=== PATIENT | female | born 1945 | race Caucasian/White ===

== ENCOUNTER 2017-11-19 22:31 | Emergency (ER) | payer MEDICARE, OTHER ==
[2017-11-20 00:01] LABS: Absolute Lymphocytes (CBC) 0.4 K/uL (0.7-4.9); Absolute Monocytes 0.5 K/uL (0.1-1.3); Absolute Neutrophil 11.3 K/uL (1.8-8.0); Basophils % 0.4 % (0-1.3); Eosinophils % 0.3 % (0-4.4); Hematocrit 40.3 % (36.0-45.0); Lymphocytes % 3.6 % (15.3-44.8); MCH 24.7 pg (27.0-35.0); MCV 80.5 fL (80-100); MPV 10.7 fL (7.6-11.3); Monocytes % 4.2 % (3.3-12.3); RBC Red Blood Cell Count 5.01 M/uL (3.86-4.86)
--- NOTE | 2017-11-20 00:04 | ER ---
Nurse's Notes [facility] Name: Shelli Caputo Age: 72 yrs Sex: Female : 1945 Arrival Date: 11/19/2017 Time: 22:32 Bed 3 Private MD: Diagnosis: Altered mental status, unspecified Presentation: 11/19 22:25 Presenting complaint: EMS states: Patient has not been feeling well all weak per lp1 family, states after dinner tonight patient got home, became pale and began shaking, vomited on self; family states hx of prior CVA with similar symptoms. Transition of care: patient was not received from another setting of care. Onset of symptoms was November 19, 2017 at 21:30. Initial Sepsis Screen: Does the patient meet any 2 criteria? No. Patient's initial sepsis screen is negative. Does the patient have a suspected source of infection? No. Patient's initial sepsis screen is negative. Care prior to arrival: Glucose check: 174 Oxygen administered. via a non-rebreather mask. 22:25 Method Of Arrival: EMS: [facility] lp1 22:25 Acuity: JESSICA 2 lp1 Historical: - Allergies: 23:18 phenylpropanolamine HCl; lp1 23:18 guaifenesin; lp1 23:18 cefazolin sodium; lp1 23:18 Duravent DM; lp1 23:18 NSAIDS; lp1 - Home Meds: 23:18 insulin aspart subcutaneous 15 units subcutaneous three times a day [Active]; albuterol lp1 sulfate 90 mcg/actuation inhalation HFAA every 6 hours [Active]; aspirin 81 mg Oral TbEC 1 tab once daily [Active]; atorvastatin 40 mg oral tab 0.5 tab nightly [Active]; budesonide-formoterol inhalation 160/4.5 mcg inhalation 1 puffs 2 times per day [Active]; carboxymethylcellulose sodium ophthalmic 1 drop ophthalmic four times a day [Active]; cetirizine 10 mg oral tab 0.5 tab once daily [Active]; Plavix 75 mg Oral tab 1 tab once daily [Active]; cyanocobalamin (vitamin B-12) 1,000 mcg oral tab daily [Active]; donepezil 10 mg oral tab 0.5 tab nightly [Active]; fluticasone 50 mcg/actuation nasal spsn 1 spray 2 times per day [Active]; gabapentin 300 mg oral cap 2 caps twice a day [Active]; insulin detemir subcutaneous 20 units subcutaneous daily [Active]; ketorolac 0.5 % ophthalmic drop 1 drop 4 times per day [Active]; lisinopril 20 mg Oral tab 1 tab once daily [Active]; magnesium oxide 420 mg Oral tab three times a day [Active]; metoprolol succinate 50 mg oral Tb24 1 tab once daily [Active]; multivitamin oral tab daily [Active]; pantoprazole 40 mg oral TbEC 1 tab 2 times per day [Active]; paroxetine HCl 30 mg oral tab 1 tab once daily [Active]; saxagliptin oral 5 mg oral once daily [Active]; thiamine HCl (vitamin B1) 100 mg Oral tab daily [Active]; tiotropium bromide inhalation 18 mcg inhalation once daily [Active]; - PMHx: 23:18 COPD; CHF; Diabetes- IDDM; CVA; lp1 - PSHx: 23:18 Brain surgery; lp1 - Immunization history:: Adult Immunizations up to date. - Social history:: Smoking status: Patient/guardian denies using tobacco, the patient reports quitting approximately 55 years ago. Screenin:03 Abuse screen: Denies threats or abuse. Nutritional screening: No deficits noted. tl2 Tuberculosis screening: No symptoms or risk factors identified. The patient has not been NPO before screening. The patient is alert, able to follow commands. The patient does not exhibit slurred or garbled speech The patient is not exhibiting difficulty speaking. The patient does not exhibit difficulty understanding words. The patient is able to swallow own secretions with no drooling or need for suction. Patient tolerated one teaspoon of water. No drooling, immediate coughing, gurgling, or clearing of the throat was noted. The patient tolerated 90mL of water. No drooling, immediate coughing, gurgling, or clearing of the throat was noted. The patient passed the bedside swallow screening. Oral medications may be given as ordered. Contact Physician for further diet orders. Fall Risk Secondary diagnosis (15 points) IV access (20 points). Gait- Weak (10 pts.). Assessment: 22:30 General: Appears well groomed, Behavior is flat. Pain: Unable to use pain scale. lp1 Patient is disoriented. FLACC scale score is 0 out of 10. Neuro: Level of Consciousness is stuporous, Oriented to person, Top Closer are weak bilaterally Moves all extremities. Speech slow to respond, delayed. Facial symmetry appears normal, Pupils are PERRLA. Cardiovascular: Capillary refill < 3 seconds in bilateral fingers toes Patient's skin is warm and dry. Rhythm is sinus tachycardia. Respiratory: Airway is patent Trachea midline Respiratory effort is even, Respiratory pattern is regular, symmetrical, Breath sounds are clear bilaterally. GI: Abdomen is non-distended. : No signs and/or symptoms were reported regarding the genitourinary system. EENT: No signs and/or symptoms were reported regarding the EENT system. Derm: Skin is pink, warm \T\ dry. Musculoskeletal: Circulation, motion, and sensation intact. 23:21 Reassessment: Family at bedside, patient becoming more responsive, recalling events lp1 prior to EMS arriving with family. 23:34 Reassessment: Labs at bedside for recollect. lp1 11/20 00:00 Reassessment: [facility] Power of Junior Linux Administrator [phone]. tl2 00:30 Reassessment: Patient resting, eyes closed, respirations unlabored; Family aware of lp1 pending transfer. 01:30 Reassessment: Patient appears in no apparent distress at this time. No changes from lp1 previously documented assessment. Patient and/or family updated on plan of care and expected duration. Pain level reassessed. 02:00 Reassessment: Report given to Gerardo Cortez RN at [facility]. lp1 02:30 Reassessment: EMS at bedside for transfer to [facility]. lp1 02:30 General: Appears in no apparent distress. Neuro: Level of Consciousness is awake, obeys lp1 commands, Oriented to person, place. Respiratory: Respiratory effort is even, unlabored. Derm: Skin is pink, warm \T\ dry. Vital Signs: 11/19 22:30 BP 191 / 97; Pulse 107; Resp 18; Temp 99.0(O); Pulse Ox 99% on 50% BiPAP; Weight 99.79 lp1 kg; 22:45 BP 156 / 92; Pulse 101; Resp 19; Pulse Ox 99% on Venturi mask; lp1 23:00 BP 154 / 87; Pulse 109; Resp 18; Pulse Ox 98% on Venturi mask; lp1 23:15 BP 149 / 88; Pulse 107; Resp 19; Pulse Ox 94% on R/A; lp1 11/20 00:00 BP 124 / 67; Pulse 92; Resp 18; Pulse Ox 95% on 1 lpm NC; lp1 00:24 BP 126 / 53; Pulse 80; Resp 18; Pulse Ox 95% on 1 lpm NC; mw2 01:00 BP 120 / 57; Pulse 81; Resp 19; Pulse Ox 95% on 1 lpm NC; lp1 01:20 BP 113 / 55; Pulse 75; Resp 18; Pulse Ox 95% on 1 lpm NC; lp1 02:00 BP 121 / 61; Pulse 77; Resp 19; Pulse Ox 96% on 1 lpm NC; lp1 02:30 BP 111 / 58; Pulse 84; Resp 17; Pulse Ox 96% on 1 lpm NC; Pain 0/10; lp1 John Coma Score: 11/19 22:49 Eye Response: spontaneous(4). Verbal Response: none(1). Motor Response: obeys ma2 commands(6). Total: 11. NIH Stroke Scale Scores: 22:49 NIHSS Score: 18 ma2 23:03 NIHSS Score: 4 tl2 ED Course: 22:25 Patient has correct armband on for positive identification. Placed in gown. Bed in low lp1 position. Call light in reach. monitoring tech on. Pulse ox on. NIBP on. 22:32 Patient arrived in ED. ds1 22:34 Akhil Ibarra MD is Attending Physician. ma2 22:34 Inserted saline lock: 22 gauge in right forearm, using aseptic technique. Blood lp1 collected. By jayesh Alexandra. 22:50 CT completed. Patient moved to CT via stretcher. Patient moved back from CT. cw1 22:50 EKG done, by ED staff, reviewed by Akhil Ibarra MD. lp1 22:53 CT Stroke Brain w/o Contrast In Process Unspecified. EDMS 22:54 Triage completed. lp1 22:55 Arm band placed on left wrist. lp1 22:58 X-ray(s) taken. lp1 23:08 X-ray completed. Portable x-ray completed in exam room. Patient tolerated procedure mh1 well. 23:10 Stroke CXR 1 View In Process Unspecified. EDMS 23:38 Shaylee Harley, RN is Primary Nurse. lp1 11/20 00:00 Inserted saline lock: 18 gauge in left antecubital area, using aseptic technique. By lp1 Dr. Ibarra. 00:15 Straight cath inserted, using sterile technique, 16 Fr. Specimen obtained. lp1 03:00 No provider procedures requiring assistance completed. Patient transferred, IV remains lp1 in place. Administered Medications: 02:40 Drug: Rocephin 1 grams Route: IV; Rate: 1 bolus; Site: left antecubital; lp1 03:06 Follow up: Response: No adverse reaction; IV Status: Completed infusion lp1 02:40 Drug: D5-1/2 NS 1000 ml Route: IV; Rate: 125 ml/hr; Site: right forearm; lp1 03:07 Follow up: IV Status: Infusion continued upon transfer lp1 03:05 CANCELLED (Physician Discretion): D5-1/2 NS 500 ml IV at bolus once; 1000 mL bolus; lp1 followed by 125 mL/hr continuous Point of Care Testing: Blood Glucose: 11/19 22:33 Blood Glucose: 226 mg/dL; lp1 11/20 02:57 Blood Glucose: 186 mg/dL; lp1 Ranges: Outcome: 00:04 ER care complete, transfer ordered by . ma2 02:00 Instructed on the need for transfer, Family aware lp1 03:04 Transferred by ground EMS to [facility] Transfer form completed. lp1 X-rays sent w/ patient. 03:04 Condition: stable 03:08 Patient left the ED. lp1 NIH Stroke Scale - NIH Stroke Score Date: 11/19/2017 Time: 22:49 Total Score = 18 1a. Level of Consciousness (LOC) - 0(Alert) 1b. Level of Consciousness (LOC) (Year \T\ Age) - 2(Neither) 1c. LOC Commands (Open \T\ Closes Eyes/Plastic Eye Technician) - 0(Both) 2. Best Gaze (Lateral Gaze Paresis) - 0(Normal) 3. Visual Field Loss - 0(No visual loss) 4. Facial Palsy - 0(Normal) 5a. Left Arm: Motor (10-second hold) - 3(No effort against gravity) 5b. Right Arm: Motor (10-second hold) - 3(No effort against gravity) 6a. Left Leg: Motor (5-second hold - always test supine) - 3(No effort against gravity) 6b. Right Leg: Motor (5-second hold - always test supine) - 3(No effort against gravity) 7. Limb Ataxia (finger/nose \T\ heel/cormier - test with eyes open) - 0(Absent) 8. Sensory Loss (pinprick arms/legs/face) - 0(Normal) 9. Best Language: Aphasia (description/naming/reading) - 2(Severe aphasia) 10. Dysarthria (speech clarity - read or repeat words) - 0(Normal) 11. Extinction and Inattention (visual/tactile/auditory/spatial/personal) - 2(Profound) Initials: ma2 NIH Stroke Scale - NIH Stroke Score Date: 11/19/2017 Time: 23:03 Total Score = 4 1a. Level of Consciousness (LOC) - 0(Alert) 1b. Level of Consciousness (LOC) (Year \T\ Age) - 0(Both) 1c. LOC Commands (Open \T\ Closes Eyes/Plastic Eye Technician) - 0(Both) 2. Best Gaze (Lateral Gaze Paresis) - 0(Normal) 3. Visual Field Loss - 0(No visual loss) 4. Facial Palsy - 0(Normal) 5a. Left Arm: Motor (10-second hold) - 0(No drift) 5b. Right Arm: Motor (10-second hold) - 0(No drift) 6a. Left Leg: Motor (5-second hold - always test supine) - 2(Drift, some effort against gravity) 6b. Right Leg: Motor (5-second hold - always test supine) - 2(Drift, some effort against gravity) 7. Limb Ataxia (finger/nose \T\ heel/cormier - test with eyes open) - 0(Absent) 8. Sensory Loss (pinprick arms/legs/face) - 0(Normal) 9. Best Language: Aphasia (description/naming/reading) - 0(No aphasia) 10. Dysarthria (speech clarity - read or repeat words) - 0(Normal) 11. Extinction and Inattention (visual/tactile/auditory/spatial/personal) - 0(No abnormality) Initials: tl2 Addendum: 11/24/2017 11:00 Addendum: Culture Results: Positive urine culture. no longer a pt at [facility], iw attempted to call at home, no answer, unable to leave . Signatures: Dispatcher [employer] EDMS Navi, Gricelda mh1 Adrienne Romero ds1 Cinthya Matute RN RN iw Smita Block cw1 Shaylee Harley RN RN lp1 Paty Cohen RN RN tl2 Akhil Ibarra MD MD mn2 Mariela Fallon mw2 Corrections: (The following items were deleted from the chart) 11/19 23:21 22:30 BP 191 / 97; Pulse 107bpm; Resp 18bpm; Pulse Ox 99% 02 50% BiPAP; 99.79 lp1 kg; lp1
--- NOTE | 2017-11-20 00:05 | EDPHYS ---
Physician Documentation [facility] Name: Shelli Caputo Age: 72 yrs Sex: Female : 1945 Arrival Date: 11/19/2017 Time: 22:32 Bed 3 Private MD: ED Physician Akhil Ibarra HPI: 11/20 00:04 This 72 yrs old Female presents to ER via EMS with complaints of S/S of ma2 Possible Stroke. 11/19 22:40 The patient presents with confusion, decreased mental status. Onset: The ma2 symptoms/episode began/occurred suddenly, 1 hour(s) ago. Possible causes: CVA or TIA. Associated signs and symptoms: The patient has no apparent associated signs or symptoms, Pertinent positives:. 22:44 Associated signs and symptoms: Pertinent positives: confusion. Current symptoms: In the [facility] emergency department the patient's symptoms are unchanged from the initial presentation. Patient's baseline: Neuro:. has 1 episode of vomiting then started staring and not taking, she follow some motor commands but aphasic, with eye open, GCS = 11 with aphasia, gets 1 for best verbal response, BS wnl, she is alert with unlabored breathing, tachycrdic and hypertensive . 23:11 had prior brain bleed per son that was [facility] on [facility] will not do Tpa . [facility] Historical: - Allergies: 23:18 phenylpropanolamine HCl; lp1 23:18 guaifenesin; lp1 23:18 cefazolin sodium; lp1 23:18 Duravent DM; lp1 23:18 NSAIDS; lp1 - Home Meds: 23:18 insulin aspart subcutaneous 15 units subcutaneous three times a day [Active]; albuterol lp1 sulfate 90 mcg/actuation inhalation HFAA every 6 hours [Active]; aspirin 81 mg Oral TbEC 1 tab once daily [Active]; atorvastatin 40 mg oral tab 0.5 tab nightly [Active]; budesonide-formoterol inhalation 160/4.5 mcg inhalation 1 puffs 2 times per day [Active]; carboxymethylcellulose sodium ophthalmic 1 drop ophthalmic four times a day [Active]; cetirizine 10 mg oral tab 0.5 tab once daily [Active]; Plavix 75 mg Oral tab 1 tab once daily [Active]; cyanocobalamin (vitamin B-12) 1,000 mcg oral tab daily [Active]; donepezil 10 mg oral tab 0.5 tab nightly [Active]; fluticasone 50 mcg/actuation nasal spsn 1 spray 2 times per day [Active]; gabapentin 300 mg oral cap 2 caps twice a day [Active]; insulin detemir subcutaneous 20 units subcutaneous daily [Active]; ketorolac 0.5 % ophthalmic drop 1 drop 4 times per day [Active]; lisinopril 20 mg Oral tab 1 tab once daily [Active]; magnesium oxide 420 mg Oral tab three times a day [Active]; metoprolol succinate 50 mg oral Tb24 1 tab once daily [Active]; multivitamin oral tab daily [Active]; pantoprazole 40 mg oral TbEC 1 tab 2 times per day [Active]; paroxetine HCl 30 mg oral tab 1 tab once daily [Active]; saxagliptin oral 5 mg oral once daily [Active]; thiamine HCl (vitamin B1) 100 mg Oral tab daily [Active]; tiotropium bromide inhalation 18 mcg inhalation once daily [Active]; - PMHx: 23:18 COPD; CHF; Diabetes- IDDM; CVA; lp1 - PSHx: 23:18 Brain surgery; lp1 - Immunization history:: Adult Immunizations up to date. - Social history:: Smoking status: Patient/guardian denies using tobacco, the patient reports quitting approximately 55 years ago. ROS: 22:49 Unable to obtain ROS due to altered mental status. ma2 11/20 00:04 Back: Negative for injury and pain. ma2 Exam: 11/19 22:49 Chest/axilla: Normal chest wall appearance and motion. Nontender with no deformity. ma2 No lesions are appreciated. Cardiovascular: Regular rate and rhythm with a normal S1 and S2. No gallops, murmurs, or rubs. Normal PMI, no JVD. No pulse deficits. Respiratory: Lungs have equal breath sounds bilaterally, clear to auscultation and percussion. No rales, rhonchi or wheezes noted. No increased work of breathing, no retractions or nasal flaring. Constitutional: The patient appears alert, awake, agitated, anxious, non verball Eyes: Pupils: equal, round, and reactive to light and accomodation, Extraocular movements: Neuro: Orientation: unable to test, Mentation: Cranial nerves: grossly normal, Cerebellar function: unable to test, Motor: unable to test, uncooperative, Sensation: unable to test, Gait: not applicable patient now answer question and state her name, still does not answer any other questions . Vital Signs: 22:30 BP 191 / 97; Pulse 107; Resp 18; Temp 99.0(O); Pulse Ox 99% on 50% BiPAP; Weight 99.79 lp1 kg; 22:45 BP 156 / 92; Pulse 101; Resp 19; Pulse Ox 99% on Venturi mask; lp1 23:00 BP 154 / 87; Pulse 109; Resp 18; Pulse Ox 98% on Venturi mask; lp1 23:15 BP 149 / 88; Pulse 107; Resp 19; Pulse Ox 94% on R/A; lp1 11/20 00:00 BP 124 / 67; Pulse 92; Resp 18; Pulse Ox 95% on 1 lpm NC; lp1 00:24 BP 126 / 53; Pulse 80; Resp 18; Pulse Ox 95% on 1 lpm NC; mw2 01:00 BP 120 / 57; Pulse 81; Resp 19; Pulse Ox 95% on 1 lpm NC; lp1 01:20 BP 113 / 55; Pulse 75; Resp 18; Pulse Ox 95% on 1 lpm NC; lp1 02:00 BP 121 / 61; Pulse 77; Resp 19; Pulse Ox 96% on 1 lpm NC; lp1 02:30 BP 111 / 58; Pulse 84; Resp 17; Pulse Ox 96% on 1 lpm NC; Pain 0/10; lp1 NIH Stroke Scale Scores: 11/19 22:49 NIHSS Score: 18 ma2 23:03 NIHSS Score: 4 tl2 John Coma Score: 22:49 Eye Response: spontaneous(4). Verbal Response: none(1). Motor Response: obeys ma2 commands(6). Total: 11. MDM: 22:39 Patient medically screened. ma2 22:49 Differential Diagnosis: CVA, electrolyte abnormality, alcohol intoxication, ma2 hypoglycemia, overdose, TIA, volume depletion. 11/20 00:01 Data reviewed: vital signs, nurses notes, lab test result(s), EKG, radiologic studies. ma2 Counseling: I had a detailed discussion with the patient and/or guardian regarding: the historical points, exam findings, and any diagnostic results supporting the discharge/admit diagnosis, the need to transfer to another facility. ED course: CT unremarkable patient mentation now is better still dysarthric, she is not cooperative or neuroexam she may have had a stroke or TIA, imprving need to be admitted, however no neurology service available in this hospital will transfer emergently for higher level of care. 11/19 22:39 Order name: Amylase, Serum; Complete Time: : ma11/19 22:39 Order name: Basic Metabolic Panel; Complete Time: 11/19 22:39 Order name: BNP; Complete Time: 11/19 22:39 Order name: CBC with Diff; Complete Time: :11/19 22:39 Order name: Ckmb; Complete Time: 11/19 22:39 Order name: CPK; Complete Time: 11/19 22:39 Order name: Hepatic Function; Complete Time: :11/19 22:39 Order name: Lipase; Complete Time: 11/19 22:39 Order name: Magnesium; Complete Time: 11/19 22:39 Order name: Protime (+inr); Complete Time: :11/19 22:39 Order name: Ptt, Activated; Complete Time: 11/19 22:39 Order name: Troponin (emerg Dept Use Only); Complete Time: :11/19 22:39 Order name: Urine Microscopic Only; Complete Time: :11/19 22:57 Order name: UDS 11/19 22:39 Order name: EKG; Complete Time: 22:40 11/19 22:39 Order name: Cardiac monitoring; Complete Time: 22:49 wy11/19 22:39 Order name: EKG - Nurse/Tech; Complete Time: 22:50 11/19 22:39 Order name: IV Saline Lock; Complete Time: 22:49 11/19 22:39 Order name: Labs collected and sent; Complete Time: 22:50 wy11/19 22:39 Order name: NPO; Complete Time: 22:50 11/19 22:39 Order name: O2 Per Protocol; Complete Time: 22:50 ma2 11/19 22:39 Order name: CT Stroke Brain w/o Contrast [facility] 11/19 22:39 Order name: Stroke CXR 1 View [facility] 11/19 22:57 Order name: Alcohol Level; Complete Time: 01:57 [facility] 11/20 00:05 Order name: Manual Differential; Complete Time: 01:57 [facility] 11/20 00:21 Order name: Urine Dipstick--Ancillary (enter results); Complete Time: 01:57 [facility] 11/20 01:43 Order name: Urine Culture [facility] 11/19 22:39 Order name: O2 Sat Monitoring; Complete Time: 22:50 [facility] 11/19 22:39 Order name: Urine Dipstick-Ancillary (obtain specimen); Complete Time: 00:23 [facility] 11/19 22:39 Order name: Accucheck; Complete Time: 22:49 [facility] 11/19 22:39 Order name: Stroke Swallow Screen; Complete Time: 23:11 ma2 Administered Medications: 02:40 Drug: Rocephin 1 grams Route: IV; Rate: 1 bolus; Site: left antecubital; lp1 03:06 Follow up: Response: No adverse reaction; IV Status: Completed infusion lp1 02:40 Drug: D5-1/2 NS 1000 ml Route: IV; Rate: 125 ml/hr; Site: right forearm; lp1 03:07 Follow up: IV Status: Infusion continued upon transfer lp1 03:05 CANCELLED (Physician Discretion): D5-1/2 NS 500 ml IV at bolus once; 1000 mL bolus; lp1 followed by 125 mL/hr continuous Point of Care Testing: Blood Glucose: 11/19 22:33 Blood Glucose: 226 mg/dL; lp1 11/20 02:57 Blood Glucose: 186 mg/dL; lp1 Ranges: Critical Glucose Levels:Adult <50 mg/dl or >400 mg/dl <40 mg/dl or >180 mg/dl Disposition: 11/20/17 00:04 Transfer ordered to [facility]. Diagnosis is Altered mental status, unspecified. - Reason for transfer: Higher level of care. - Accepting physician is Dr. Gongora. - Condition is Stable. - Problem is new. - Symptoms have improved. NIH Stroke Scale - NIH Stroke Score Date: 11/19/2017 Time: 22:49 Total Score = 18 1a. Level of Consciousness (LOC) - 0(Alert) 1b. Level of Consciousness (LOC) (Year \T\ Age) - 2(Neither) 1c. LOC Commands (Open \T\ Closes Eyes/Incident Analyst) - 0(Both) 2. Best Gaze (Lateral Gaze Paresis) - 0(Normal) 3. Visual Field Loss - 0(No visual loss) 4. Facial Palsy - 0(Normal) 5a. Left Arm: Motor (10-second hold) - 3(No effort against gravity) 5b. Right Arm: Motor (10-second hold) - 3(No effort against gravity) 6a. Left Leg: Motor (5-second hold - always test supine) - 3(No effort against gravity) 6b. Right Leg: Motor (5-second hold - always test supine) - 3(No effort against gravity) 7. Limb Ataxia (finger/nose \T\ heel/cormier - test with eyes open) - 0(Absent) 8. Sensory Loss (pinprick arms/legs/face) - 0(Normal) 9. Best Language: Aphasia (description/naming/reading) - 2(Severe aphasia) 10. Dysarthria (speech clarity - read or repeat words) - 0(Normal) 11. Extinction and Inattention (visual/tactile/auditory/spatial/personal) - 2(Profound) Initials: ma2 NIH Stroke Scale - NIH Stroke Score Date: 11/19/2017 Time: 23:03 Total Score = 4 1a. Level of Consciousness (LOC) - 0(Alert) 1b. Level of Consciousness (LOC) (Year \T\ Age) - 0(Both) 1c. LOC Commands (Open \T\ Closes Eyes/Incident Analyst) - 0(Both) 2. Best Gaze (Lateral Gaze Paresis) - 0(Normal) 3. Visual Field Loss - 0(No visual loss) 4. Facial Palsy - 0(Normal) 5a. Left Arm: Motor (10-second hold) - 0(No drift) 5b. Right Arm: Motor (10-second hold) - 0(No drift) 6a. Left Leg: Motor (5-second hold - always test supine) - 2(Drift, some effort against gravity) 6b. Right Leg: Motor (5-second hold - always test supine) - 2(Drift, some effort against gravity) 7. Limb Ataxia (finger/nose \T\ heel/cormier - test with eyes open) - 0(Absent) 8. Sensory Loss (pinprick arms/legs/face) - 0(Normal) 9. Best Language: Aphasia (description/naming/reading) - 0(No aphasia) 10. Dysarthria (speech clarity - read or repeat words) - 0(Normal) 11. Extinction and Inattention (visual/tactile/auditory/spatial/personal) - 0(No abnormality) Initials: tl2 Signatures: Dispatcher [employer] EDShaylee Patel RN RN [address] Stone StreetAkhil giordano MD MD ma2 Corrections: (The following items were deleted from the chart) 02:01 00:04 11/20/2017 00:04 Transfer ordered to Other Acute Care Facility. Diagnosis ma2 is Altered mental status, unspecified. Reason for transfer: Higher level of care. Accepting physician is luz. Condition is Stable. Problem is new. Symptoms have improved. ma2 03:05 02:04 D5-1/2 NS 500 ml IV at bolus once; 1000 mL bolus; followed by 125 mL/hr lp1 continuous ordered. ma2 03:08 02:01 11/20/2017 00:04 Transfer ordered to 's [address] Diagnosis is Altered mental status, unspecified. Reason for transfer: Higher level of care. Accepting physician is Dr. Gongora. Condition is Stable. Problem is new. Symptoms have improved. ma2
[2017-11-20 00:08] LABS: Protime INR 1.32
[2017-11-20 00:22] LABS: Potassium 4.6 mEq/L (3.6-5.0)
[2017-11-20 00:29] LABS: Albumin 3.5 g/dL (3.2-5.5); Bilirubin Direct 0.2 mg/dL (0-0.2); Bilirubin Total 0.7 mg/dL (0.3-1.2); Magnesium 1.5 mg/dL (1.8-2.5); Protein, Total 6.6 g/dL (6.0-8.3)
[2017-11-20 00:32] LABS: CKMB Creatine Kinase MB 2.7 ng/ml (0.3-4.0)
[2017-11-20 01:08] LABS: Blood Morphology Comment NOT SEEN (NOT SEEN); Platelet Estimate ADEQ
[2017-11-20 01:30] LABS: Barbiturates NEGATIVE; Benzodiazepines NEGATIVE; Cocaine NEGATIVE; METHAMPHETAM NEGATIVE; Opiates NEGATIVE; Phencyclidine NEGATIVE; THC Cannibis NEGATIVE
[2017-11-20 01:41] LABS: Urine Culture Reflex Order REFLEXED
[2017-11-20 01:42] LABS: Urine Bacteria LOADED /HPF (<20)
[2017-11-20 01:43] LABS: Urine RBC NONE SEEN /HPF (NONE SEEN)
[2017-11-20 01:44] LABS: Urine Blood 1+ (NEG); Urine Glucose NEGATIVE (NEG); Urine Protein 3+ (NEG); Urine Specific Gravity >1.030 (1.005-1.030); Urine pH 5.5 (5.0-7.0)
[2017-11-20] MEDS ORDERED: D5 0.45 NS 1,000 ML IV ONE (02:18)
[2017-11-20] MEDS ORDERED: CEFTRIAXONE/SWI 1gm 1 GM/10 ML SYR ONE (02:19)
[2017-11-20 03:34] VITALS: O2SAT 96
[2017-11-20 03:36] VITALS: BP 111/58
--- NOTE | 2017-11-20 11:21 | RAD REPORT ---
EXAM DESCRIPTION: CT - Ct Stroke Brain Wo Cont - 11/20/2017 6:57 am CLINICAL HISTORY: Altered consciousness, CVA COMPARISON: 07/11/2017, 11/11/2014 TECHNIQUE: All CT scans are performed using dose optimization technique as appropriate and may inclu de automated exposure control or mA/KV adjustment according to patient size. FINDINGS: No intracranial hemorrhage, hydrocephalus or extra-axial fluid collection.Advanced general ized brain atrophy is present with advanced periventricular and deep white matter chronic microvascul ar ischemic changes.No areas of brain edema or evidence of midline shift. Trace fluid level is seen left maxillary antrum. The paranasal sinuses and mastoids are otherwise carmencita ar. The calvarium is intact. IMPRESSION: No acute intracranial abnormality. Mild fluid level in the left maxillary antrum may represent acute sinusitis.
--- NOTE | 2017-11-20 11:34 | RAD REPORT ---
EXAM DESCRIPTION: RAD - Chest Single View - 11/19/2017 11:09 pm CLINICAL HISTORY: Shortness of breath COMPARISON: 07/11/2017 FINDINGS: Portable technique limits examination quality. Bilateral pulmonary opacities are noted with a nodular appearance to many of the opacities in the lef t lung. This appears new since comparative study. The heart is mildly prominent size. No displaced fr actures.Recommend followup CT chest assessment further workup.
--- NOTE | 2017-11-20 15:23 | EKG ---
Test Date: 2017-11-19 Test Time: 22:50:45 Label Sewer: BEN MEASUREMENT RESULTS: Intervals: Rate: 104 AL: 200 QRSD: 114 QT: 382 QTc: 502 [place]: P: 46 AL: 200 QRS: -45 T: 43 INTERPRETIVE STATEMENTS: Sinus tachycardia with premature atrial complexes Right bundle branch block Left anterior fascicular block Bifascicular block Septal infarct, age undetermined Abnormal ECG Compared to ECG 07/11/2017 21:12:15 Atrial premature complex(es) now present Left anterior fascicular block now present Bifascicular block now present Sinus rhythm no longer present Myocardial infarct finding still present Electronically Signed On 11-20-17 15:23:21 CDT by Dani Agarwal
== END 2017-11-20 03:08 ==
LOC: ER 22:31
DX: R41.82 Altered mental status, unspecified (principal); E11.9 Type 2 diabetes mellitus without complications; I50.9 Heart failure, unspecified; J44.9 Chronic obstructive pulmonary disease, unspecified; Z79.01 Long term (current) use of anticoagulants; Z79.4 Long term (current) use of insulin; Z79.82 Long term (current) use of aspirin; Z86.73 Personal history of transient ischemic attack (TIA), and cerebral infarction without residual deficits; Z88.6 Allergy status to analgesic agent; Z88.8 Allergy status to other drugs, medicaments and biological substances
CPT/HCPCS: 36415; 51702; 70450; 71045; 80048; 80076; 80307 ×8; 80320; 82150; 82550; 82553; 82962; 83690; 83735; 83880; 84484; 85025; 85610; 85730; 87086; 87088; 93005; 96365; 99285; J0696; 81003; 81015; 87077; 87186; 96361

== ENCOUNTER 2018-05-01 20:10 | Inpatient (IN) | payer OTHER ==
--- NOTE | 2018-05-01 21:26 | RAD REPORT ---
EXAM DESCRIPTION: CT - Head C Spine Mpr Wo Con - 05/01/2018 8:57 pm CLINICAL HISTORY: Head and neck injury status post fall. Head and neck pain COMPARISON: May 2017 TECHNIQUE: Computed axial tomography of the head and cervical spine was obtained. Sagittal and coronal reconstruction was performed. All CT scans are performed using dose optimization technique as appropriate and may include automated exposure control or mA/KV adjustment according to patient size. FINDINGS: An intracranial bleed is not seen. The ventricles are normal in caliber. An extra-axial fl uid collection is not noted. Moderate low-density areas within periventricular, deep and subcortical white matter are unchanged probably ischemic changes secondary to small vessel disease. Fluid within the visualized sinuses and mastoids is not seen A cervical fracture is not visualized. No dislocation is noted. Sideplate and screws fuse C4 through C7 with kyphosis at this level. The sideplate is not flush with the anterior aspect of the adjacent v ertebral bodies. It is without significant change in appearance from the prior exam IMPRESSION: No acute intracranial abnormality is seen. A cervical fracture is not visualized. If the patient continues to have symptoms to suggest intracra nial /spinal cord pathology then MRI would be recommended
[2018-05-01 21:37] LABS: Albumin 3.2 g/dL (3.4-5.0); Bilirubin Direct 0.1 mg/dL (0-0.2); Bilirubin Total 0.4 mg/dL (0.2-1.0); Magnesium 1.5 mg/dL (1.8-2.4); Potassium 4.2 mmol/L (3.5-5.1); Protein, Total 6.8 g/dL (6.4-8.2); Troponin (Emerg Dept Use Only) 0.02 ng/mL (0.0-0.045)
--- NOTE | 2018-05-01 22:05 | RAD REPORT ---
EXAM DESCRIPTION: [place] Single View05/01/2018 9:54 pm CLINICAL HISTORY: Chest pain COMPARISON: November 2017 FINDINGS: The lungs appear clear of acute infiltrate. The heart is borderline enlarged Old right rib fractures are seen IMPRESSION: No acute abnormalities displayed
--- NOTE | 2018-05-01 22:05 | RAD REPORT ---
EXAM DESCRIPTION: RAD - Pelvis - 05/01/2018 9:55 pm CLINICAL HISTORY: Pelvic pain status post injury FINDINGS: Compression screws and intramedullary rods affix old femoral fractures. The bones are osteoporotic. No acute fracture or dislocation is seen
--- NOTE | 2018-05-01 22:07 | RAD REPORT ---
EXAM DESCRIPTION: RAD - Hip Right 2 View - 05/01/2018 9:55 pm CLINICAL HISTORY: Right hip pain FINDINGS: Compression screws and intramedullary rods affix old femoral fractures. The bones are osteoporotic. No acute fracture or dislocation is se
--- NOTE | 2018-05-01 22:08 | RAD REPORT ---
EXAM DESCRIPTION: RAD - Hip Left 2 View - 05/01/2018 9:55 pm CLINICAL HISTORY: Left hip pain status post injury FINDINGS: Compression screws and intramedullary rods affix old femoral fractures. The bones are osteoporotic. No acute fracture or dislocation is se .
--- NOTE | 2018-05-01 22:12 | RAD REPORT ---
EXAM DESCRIPTION: Ribs Right - 05/01/2018 9:57 pm CLINICAL HISTORY: Right rib pain FINDINGS: Minimally displaced fractures involve right eighth, ninth and tenth lateral ribs
[2018-05-01 22:26] LABS: Protime INR 1.41
[2018-05-01] MEDS ORDERED: NA CHLORIDE 0.9% 500 ML ONE (22:29)
[2018-05-01 22:47] LABS: Blood O2 Saturation 93.5 % (92-98.5)
--- NOTE | 2018-05-01 23:10 | ER ---
Nurse's Notes [facility] Name: Shelli Caputo Age: 73 yrs Sex: Female : 1945 Arrival Date: 05/01/2018 Time: 20:11 Bed 2 Private MD: Mello Shrestha Diagnosis: Multiple fractures of ribs, right side;Hyperglycemia, unspecified;bilateral skin tears/abrasions;Other slipping, tripping and stumbling and falls;Alcohol abuse;Hypomagnesemia Presentation: 05/01 20:36 Presenting complaint: EMS states: Pt has been living alone since sister has been tl2 admitted to hospital. Pt has been falling, not taking medication and drank a bottle of wine tonight. Pt is AOx4. Pt reports pain in right rib cage area. Transition of care: patient was not received from another setting of care. Onset of symptoms was April 29, 2018. Risk Assessment: Do you want to hurt yourself or someone else? Patient reports no desire to harm self or others. Initial Sepsis Screen: Does the patient meet any 2 criteria? No. Patient's initial sepsis screen is negative. Does the patient have a suspected source of infection? No. Patient's initial sepsis screen is negative. Care prior to arrival: Glucose check: 420. 20:36 Method Of Arrival: EMS: [facility] tl2 20:36 Acuity: JESSICA 3 tl2 Triage Assessment: 20:33 General: Appears in no apparent distress. uncomfortable, Behavior is appropriate for tl2 age, anxious. Pain: Complains of pain in right rib cage. Neuro: Level of Consciousness is awake, alert, obeys commands, Oriented to person, place, time, situation. Cardiovascular: Denies chest pain. Respiratory: Airway is patent Respiratory effort is even, unlabored, Respiratory pattern is regular, symmetrical. GI: No signs and/or symptoms were reported involving the gastrointestinal system. : No signs and/or symptoms were reported regarding the genitourinary system. Derm: Skin is pink, warm \T\ dry. Wound noted Other: Wounds noted to SHELBIE arms and hands, that are healing slowly. Historical: - Allergies: 20:33 cefazolin sodium; tl2 20:33 Duravent DM; tl2 20:33 GUAIFENESIN; tl2 20:33 NSAIDS; tl2 20:33 phenylpropanolamine HCl; tl2 - Home Meds: 20:33 albuterol sulfate 90 mcg/actuation Inhl HFAA every 6 hours [Active]; aspirin 81 mg Oral tl2 TbEC 1 tab once daily [Active]; atorvastatin 40 mg Oral tab 0.5 tab nightly [Active]; budesonide-formoterol 160/4.5 mcg inhalation 1 puffs 2 times per day [Active]; carboxymethylcellulose sodium 1 drop ophthalmic four times a day [Active]; cetirizine 10 mg Oral tab 0.5 tab once daily [Active]; cyanocobalamin (vitamin B-12) 1,000 mcg Oral tab daily [Active]; donepezil 10 mg Oral tab 0.5 tab nightly [Active]; fluticasone 50 mcg/actuation nasal spsn 1 spray 2 times per day [Active]; gabapentin 300 mg Oral cap 2 caps twice a day [Active]; insulin aspart 15 units subcutaneous three times a day [Active]; insulin detemir 20 units subcutaneous daily [Active]; ketorolac 0.5 % ophthalmic drop 1 drop 4 times per day [Active]; lisinopril 20 mg Oral tab 1 tab once daily [Active]; magnesium oxide 420 mg Oral tab three times a day [Active]; metoprolol succinate 50 mg Oral Tb24 1 tab once daily [Active]; multivitamin Oral tab daily [Active]; pantoprazole 40 mg Oral TbEC 1 tab 2 times per day [Active]; paroxetine HCl 30 mg Oral tab 1 tab once daily [Active]; Plavix 75 mg Oral tab 1 tab once daily [Active]; saxagliptin 5 mg Oral once daily [Active]; thiamine HCl (vitamin B1) 100 mg Oral tab daily [Active]; tiotropium bromide 18 mcg inhalation once daily [Active]; - PMHx: 20:33 CHF; COPD; CVA; Diabetes- IDDM; tl2 - Immunization history:: Adult Immunizations up to date. - Social history:: Smoking status: Patient/guardian denies using tobacco, Patient uses alcohol, reports drinking a bottle of wine tonight. - Ebola Screening: : No symptoms or risks identified at this time. Screenin:38 Abuse screen: Denies threats or abuse. Nutritional screening: No deficits noted. tl2 Tuberculosis screening: No symptoms or risk factors identified. Fall Risk Gait- Weak (10 pts.). Assessment: 20:56 General: see triage assessment. tl2 22:09 Reassessment: Patient appears in no apparent distress at this time. Patient and/or tl2 family updated on plan of care and expected duration. Pain level reassessed. Patient is alert, oriented x 3, equal unlabored respirations, skin warm/dry/pink. Pt returned from Xray, no complaints or concerns at this time. Awaiting lab results. 23:01 Reassessment: Patient appears in no apparent distress at this time. Patient and/or tl2 family updated on plan of care and expected duration. Pain level reassessed. Patient is alert, oriented x 3, equal unlabored respirations, skin warm/dry/pink. 05/02 02:04 Reassessment: Patient appears in no apparent distress at this time. Patient and/or tl2 family updated on plan of care and expected duration. Pain level reassessed. Patient is alert, oriented x 3, equal unlabored respirations, skin warm/dry/pink. Pt resting, no complaints or concerns at this time. [facility] 04:23 Reassessment: Patient and/or family updated on plan of care and expected duration. Pain ea level reassessed. Patient is alert, oriented x 3, equal unlabored respirations, skin warm/dry/pink. 05:02 Reassessment: Report called to Meera CABRALES on second floor. ea 05:04 Reassessment: Patient and/or family updated on plan of care and expected duration. Pain ea level reassessed. Patient is alert, oriented x 3, equal unlabored respirations, skin warm/dry/pink. 05:33 Reassessment: Patient appears in no apparent distress at this time. Patient and/or tl2 family updated on plan of care and expected duration. Pain level reassessed. Patient is alert, oriented x 3, equal unlabored respirations, skin warm/dry/pink. Pt stable and ready for transport to floor. Vital Signs: 05/01 20:33 BP 161 / 109; Pulse 98; Resp 20; Temp 98.6; Pulse Ox 99% on R/A; Weight 83.91 kg; tl2 Height 5 ft. 6 in. (167.64 cm); Pain 8/10; 22:09 BP 156 / 80; Pulse 101; Resp 18; Pulse Ox 99% on R/A; tl2 23:01 BP 178 / 89; Pulse 101; Resp 20; Pulse Ox 97% on R/A; tl2 05/02 02:03 BP 163 / 83; Pulse 99; Resp 18; Pulse Ox 97% on R/A; tl2 03:40 BP 161 / 94; Pulse 92; Resp 18; Pulse Ox 96% on R/A; tl2 04:23 BP 171 / 94; Pulse 90; Resp 18; Pulse Ox 99% on R/A; ea 05/01 20:33 Body Mass Index 29.86 (83.91 kg, 167.64 cm) tl2 ED Course: 05/01 20:11 Patient arrived in ED. ds1 20:13 Paty Cohen RN is Primary Nurse. tl2 20:18 Tapan Chan NP is PHCP. pm1 20:18 Faizan Quiroga MD is Attending Physician. pm1 20:37 Triage completed. tl2 20:38 Patient has correct armband on for positive identification. Bed in low position. Call tl2 light in reach. Side rails up X2. Adult w/ patient. 20:39 Arm band placed on right wrist. tl2 20:43 Mello Shrestha DO is Private Physician. ds1 20:57 CT Head C Spine In Process Unspecified. EDMS 21:12 CT completed. Patient tolerated procedure well. Patient moved to radiology. mw3 21:49 X-ray completed. Patient tolerated procedure well. Patient moved back from radiology. ls3 21:54 XRAY Chest (1 view) In Process Unspecified. EDMS 21:55 Ribs Right XRAY In Process Unspecified. EDMS 21:55 Hip Left 2 View XRAY In Process Unspecified. EDMS 21:56 Hip Right 2 View XRAY In Process Unspecified. EDMS 21:56 Pelvis XRAY In Process Unspecified. EDMS 22:11 Inserted saline lock: 20 gauge in right upper arm, using aseptic technique. Blood tl2 collected. placed by Idalia Henderson RN. 05/02 02:58 Gamaliel Chávez MD is Hospitalizing Provider. pm1 04:51 No provider procedures requiring assistance completed. Patient admitted, IV remains in ea place. Administered Medications: 05/01 22:26 Drug: NS 0.9% 500 ml Route: IV; Rate: bolus; Site: right upper arm; tl2 05/02 00:46 Follow up: IV Status: Completed infusion; IV Intake: 500ml tl2 05/01 23:10 Drug: Magnesium Sulfate 1 grams Route: IVPB; Infused Over: 1 hrs; Site: right upper arm;tl2 05/02 00:46 Follow up: IV Status: Completed infusion tl2 05/01 23:10 Drug: morphine 2 mg Route: IVP; Site: right upper arm; tl2 23:30 Follow up: Response: No adverse reaction; Pain is decreased tl2 23:11 Drug: Zofran 4 mg Route: IVP; Site: right upper arm; tl2 23:30 Follow up: Response: No adverse reaction tl2 05/02 00:46 Drug: Metoprolol 25 mg Route: PO; tl2 05:04 Follow up: Response: No adverse reaction; Marked relief of symptoms ea 00:46 Drug: morphine 2 mg Route: IVP; Site: right upper arm; tl2 01:30 Follow up: Response: No adverse reaction; Pain is decreased ea 04:18 Drug: morphine 2 mg Route: IVP; Site: right antecubital; ea 04:30 Follow up: Response: No adverse reaction; Pain is decreased ea Point of Care Testing: Blood Glucose: 01:29 Blood Glucose: 282 mg/dL; ds4 Ranges: Intake: 00:46 IV: 500ml; Total: 500ml. tl2 Outcome: 05/01 23:10 ER care complete, transfer ordered by . pm1 05/02 02:59 Decision to Hospitalize by Provider. pm1 04:51 Instructed on the need for admit, Demonstrated understanding of instructions. ea 05:03 Admitted to Med/surg accompanied by tech, room 216, Report called to Meera CABRALES ea 05:03 Condition: stable 05:33 Patient left the ED. tl2 Signatures: Dispatcher [employer] EDID Adrienne Romero ds1 Wayne Stewart ds4 Tapan Chan NP [employer] pm1 Paty Cohen RN RN tl2 Heavenly Phan RN RN ea Willis, Michelle mw3 Kinjal Lutz ls3 Corrections: (The following items were deleted from the chart) 02:03 05/01 20:33 BP 161 / 109; Pulse 98bpm; Resp 20bpm; Pulse Ox 99% RA; 83.91 kg; Height 5 tl2 ft. 6 in.; BMI: 29.8; Pain 8/10; tl2
--- NOTE | 2018-05-01 23:11 | EDPHYS ---
Physician Documentation [facility] Name: Shelli Caputo Age: 73 yrs Sex: Female : 1945 Arrival Date: 05/01/2018 Time: 20:11 Bed 2 Private MD: Mello Shrestha ED Physician Faizan Quiroga HPI: 05/01 21:00 This 73 yrs old Female presents to ER via EMS with complaints of High Blood pm1 Sugar and Right rib pain. 21:00 Patient has been home alone for 2 weeks since her sister was admitted in the hospital. pm1 Family checked on her today and found that her blood sugar was elevated and that she has been falling. Patient has been drinking alcohol and has not been taking her medications. This usually occurs every time the sister, who has power of trade mark attorney, is admitted in the hospital. Patient presenting with pain to left occipital area and right lower anterior rib cage. Patient denies LOC, nausea, vomiting, chest pain, or shortness of breath . Historical: - Allergies: 20:33 cefazolin sodium; tl2 20:33 Duravent DM; tl2 20:33 GUAIFENESIN; tl2 20:33 NSAIDS; tl2 20:33 phenylpropanolamine HCl; tl2 - Home Meds: 20:33 albuterol sulfate 90 mcg/actuation Inhl HFAA every 6 hours [Active]; aspirin 81 mg Oral tl2 TbEC 1 tab once daily [Active]; atorvastatin 40 mg Oral tab 0.5 tab nightly [Active]; budesonide-formoterol 160/4.5 mcg inhalation 1 puffs 2 times per day [Active]; carboxymethylcellulose sodium 1 drop ophthalmic four times a day [Active]; cetirizine 10 mg Oral tab 0.5 tab once daily [Active]; cyanocobalamin (vitamin B-12) 1,000 mcg Oral tab daily [Active]; donepezil 10 mg Oral tab 0.5 tab nightly [Active]; fluticasone 50 mcg/actuation nasal spsn 1 spray 2 times per day [Active]; gabapentin 300 mg Oral cap 2 caps twice a day [Active]; insulin aspart 15 units subcutaneous three times a day [Active]; insulin detemir 20 units subcutaneous daily [Active]; ketorolac 0.5 % ophthalmic drop 1 drop 4 times per day [Active]; lisinopril 20 mg Oral tab 1 tab once daily [Active]; magnesium oxide 420 mg Oral tab three times a day [Active]; metoprolol succinate 50 mg Oral Tb24 1 tab once daily [Active]; multivitamin Oral tab daily [Active]; pantoprazole 40 mg Oral TbEC 1 tab 2 times per day [Active]; paroxetine HCl 30 mg Oral tab 1 tab once daily [Active]; Plavix 75 mg Oral tab 1 tab once daily [Active]; saxagliptin 5 mg Oral once daily [Active]; thiamine HCl (vitamin B1) 100 mg Oral tab daily [Active]; tiotropium bromide 18 mcg inhalation once daily [Active]; - PMHx: 20:33 CHF; COPD; CVA; Diabetes- IDDM; tl2 - Immunization history:: Adult Immunizations up to date. - Social history:: Smoking status: Patient/guardian denies using tobacco, Patient uses alcohol, reports drinking a bottle of wine tonight. - Ebola Screening: : No symptoms or risks identified at this time. ROS: 21:00 Constitutional: Negative for fever, chills, and weight loss, Eyes: Negative for injury, pm1 pain, redness, and discharge, ENT: Negative for injury, pain, and discharge, Neck: Negative for injury, pain, and swelling, Cardiovascular: Negative for chest pain, palpitations, and edema. Right lower rib pain Respiratory: Negative for shortness of breath, cough, wheezing, and pleuritic chest pain, Abdomen/GI: Negative for abdominal pain, nausea, vomiting, diarrhea, and constipation, Back: Negative for injury and pain, MS/Extremity: Negative for injury and deformity, Skin: Negative for injury, rash, and discoloration. 21:00 Neuro: Positive for headache, Negative for altered mental status, numbness, tingling, weakness. 21:00 Endocrine: Positive for hyperglycemia on home finger stick by granddaughter. Exam: 21:00 Constitutional: This is a well developed, well nourished patient who is awake, alert, pm1 and in no acute distress. Eyes: Pupils equal round and reactive to light, extra-ocular motions intact. Lids and lashes normal. Conjunctiva and sclera are non-icteric and not injected. Cornea within normal limits. Periorbital areas with no swelling, redness, or edema. 21:00 ENT: Nares patent. No nasal discharge, no septal abnormalities noted. Tympanic membranes are normal and external auditory canals are clear. Oropharynx with no redness, swelling, or masses, exudates, or evidence of obstruction, uvula midline. Mucous membranes moist. Neck: Trachea midline, no thyromegaly or masses palpated, and no cervical lymphadenopathy. Supple, full range of motion without nuchal rigidity, or vertebral point tenderness. No Meningismus. Cardiovascular: Regular rate and rhythm with a normal S1 and S2. No gallops, murmurs, or rubs. Normal PMI, no JVD. No pulse deficits. Respiratory: Lungs have equal breath sounds bilaterally, clear to auscultation and percussion. No rales, rhonchi or wheezes noted. No increased work of breathing, no retractions or nasal flaring. Abdomen/GI: Soft, non-tender, with normal bowel sounds. No distension or tympany. No guarding or rebound. No evidence of tenderness throughout. Back: No spinal tenderness. No costovertebral tenderness. Full range of motion. 21:00 Skin: Warm, dry with normal turgor. Normal color with no rashes and no evidence of cellulitis. MS/ Extremity: Pulses equal, no cyanosis. Neurovascular intact. Full, normal range of motion. 21:00 Head/face: Exam is negative for pedro signs, deformity, raccoon eyes, Noted is no obvious of injury or deformity except tenderness, that is mild, of the left side of the back of head. 21:00 Chest/axilla: Inspection: ecchymosis, of the right lower anterior ribs Palpation: crepitus, is not appreciated, tenderness, of the right lower ribs. 21:00 Musculoskeletal/extremity: Extremities: grossly normal except: noted in the right and left hip: There is no evidence of deformity. 21:00 Neuro: Orientation: to person, place, situation, Motor: moves all fours, Sensation: is normal, no obvious gross deficits. 21:00 Skin: injury, 2 - 2 cm diameter skin tear/abrasion present to left arm. 1 - 2 cm skin pm1 ear/abrasion present to right arm . Vital Signs: 20:33 BP 161 / 109; Pulse 98; Resp 20; Temp 98.6; Pulse Ox 99% on R/A; Weight 83.91 kg; tl2 Height 5 ft. 6 in. (167.64 cm); Pain 8/10; 22:09 BP 156 / 80; Pulse 101; Resp 18; Pulse Ox 99% on R/A; tl2 23:01 BP 178 / 89; Pulse 101; Resp 20; Pulse Ox 97% on R/A; tl2 05/02 02:03 BP 163 / 83; Pulse 99; Resp 18; Pulse Ox 97% on R/A; tl2 03:40 BP 161 / 94; Pulse 92; Resp 18; Pulse Ox 96% on R/A; tl2 04:23 BP 171 / 94; Pulse 90; Resp 18; Pulse Ox 99% on R/A; ea 05/01 20:33 Body Mass Index 29.86 (83.91 kg, 167.64 cm) tl2 MDM: 05/01 20:20 Patient medically screened. pm1 22:59 Data reviewed: vital signs. Data interpreted: Pulse oximetry: on room air is 99 %. pm1 Interpretation: normal. 23:08 Counseling: I had a detailed discussion with the patient and/or guardian regarding: the pm1 historical points, exam findings, and any diagnostic results supporting the discharge/admit diagnosis, lab results, radiology results, the need for further work-up and treatment in the hospital, Sister with power of trade mark attorney would like the patient transferred to the [place]. 23:30 ED course: Sister, power of trade mark attorney is fine with keeping the patient here if transfer pm1 not possible. 05/01 20:37 Order name: Basic Metabolic Panel pm1 05/01 20:37 Order name: CBC with Diff; Complete Time: 23:53 pm1 05/01 20:37 Order name: LFT's; Complete Time: 21:44 pm1 05/01 20:37 Order name: Magnesium; Complete Time: 21:44 pm1 05/01 20:37 Order name: NT PRO-BNP; Complete Time: 21:44 pm1 05/01 20:37 Order name: PT-INR; Complete Time: 22:33 pm1 05/01 20:37 Order name: Troponin (emerg Dept Use Only); Complete Time: 21:44 pm1 05/01 20:38 Order name: Basic Metabolic Panel; Complete Time: 21:44 EDMS 05/01 22:17 Order name: ABG; Complete Time: 22:59 tl2 05/01 22:33 Order name: Urine Dipstick--Ancillary (enter results); Complete Time: 00:16 ms 05/01 22:34 Order name: Urine Microscopic Only; Complete Time: 00:16 ms 05/01 23:52 Order name: ETOH Level tl2 05/01 23:53 Order name: Alcohol Serum/Plasma; Complete Time: 00:18 EDMS 05/01 20:35 Order name: CT Head C Spine; Complete Time: 21:44 pm1 05/01 20:37 Order name: XRAY Chest (1 view); Complete Time: 22:14 pm1 05/01 20:37 Order name: EKG; Complete Time: 20:38 pm1 05/01 20:37 Order name: Cardiac monitoring; Complete Time: 22:11 pm1 05/01 20:37 Order name: Ribs Right XRAY; Complete Time: 22:14 pm1 05/01 20:37 Order name: Hip Left 2 View XRAY; Complete Time: 22:14 pm1 05/01 20:37 Order name: Hip Right 2 View XRAY; Complete Time: 22:14 pm1 05/01 20:37 Order name: Pelvis XRAY; Complete Time: 22:14 pm1 05/02 00:05 Order name: Urine Culture EDMS 05/01 20:37 Order name: EKG - Nurse/Tech; Complete Time: 22:27 pm1 05/01 20:37 Order name: IV Saline Lock; Complete Time: 22:11 pm1 05/01 20:37 Order name: Labs collected and sent; Complete Time: 22:11 pm1 05/01 20:37 Order name: O2 Per Protocol; Complete Time: 20:45 pm1 05/01 20:37 Order name: O2 Sat Monitoring; Complete Time: 20:45 pm1 Administered Medications: 22:26 Drug: NS 0.9% 500 ml Route: IV; Rate: bolus; Site: right upper arm; tl2 05/02 00:46 Follow up: IV Status: Completed infusion; IV Intake: 500ml tl2 05/01 23:10 Drug: Magnesium Sulfate 1 grams Route: IVPB; Infused Over: 1 hrs; Site: right upper arm;tl2 05/02 00:46 Follow up: IV Status: Completed infusion tl2 05/01 23:10 Drug: morphine 2 mg Route: IVP; Site: right upper arm; tl2 23:30 Follow up: Response: No adverse reaction; Pain is decreased tl2 23:11 Drug: Zofran 4 mg Route: IVP; Site: right upper arm; tl2 23:30 Follow up: Response: No adverse reaction tl2 05/02 00:46 Drug: Metoprolol 25 mg Route: PO; tl2 05:04 Follow up: Response: No adverse reaction; Marked relief of symptoms ea 00:46 Drug: morphine 2 mg Route: IVP; Site: right upper arm; tl2 01:30 Follow up: Response: No adverse reaction; Pain is decreased ea 04:18 Drug: morphine 2 mg Route: IVP; Site: right antecubital; ea 04:30 Follow up: Response: No adverse reaction; Pain is decreased ea Point of Care Testing: Blood Glucose: 01:29 Blood Glucose: 282 mg/dL; ds4 Ranges: Critical Glucose Levels:Adult <50 mg/dl or >400 mg/dl <40 mg/dl or >180 mg/dl Disposition: 06:09 Co-signature as Attending Physician, Faizan Quiroga MD I agree with the assessment and tw4 plan of care. Attestation: The patient's history, exam findings, diagnostics, and a summary of any interventions or procedures was reviewed in detail with Tapan Chan NP. Disposition: 05/02/18 02:59 Hospitalization ordered by Gamaliel Chávez for Observation. Preliminary diagnosis are Multiple fractures of ribs, right side, Hyperglycemia, unspecified, bilateral skin tears/abrasions, Other slipping, tripping and stumbling and falls, Alcohol abuse, Hypomagnesemia. - Bed requested for Telemetry/MedSurg (observation). - Status is Observation. tl2 - Condition is Stable. - Problem is new. - Symptoms have improved. UTI on Admission? No Signatures: Dispatcher [employer] EDMS Jacquelyn Henderson RN RN kl Marinas, Patrick, NP TROMMEL TENDER pm1 Paty Cohen RN RN tl2 Heavenly Phan RN RN ea Wadley, Terrence, MD MD tw4 Corrections: (The following items were deleted from the chart) 05/01 23:25 23:10 05/01/2018 23:10 Transfer ordered to [address] Diagnosis is Multiple fractures of ribs, right side; Hyperglycemia, unspecified; Bilateral arm skin tears. Reason for transfer: Patient request. Accepting physician is [place]. Condition is Stable. Problem is new. Symptoms have improved. pm1 05/02 00:22 05/01 20:35 ETHANOL+C.LAB.BRZ ordered. EDID EDMS 05/02 00:24 05/01 23:25 05/01/2018 23:10 Transfer ordered to [address] Diagnosis is Multiple fractures of ribs, right side; Hyperglycemia, unspecified; Bilateral arm skin tears; Other slipping, tripping and stumbling and falls; Alcohol abuse. Reason for transfer: Patient request. Accepting physician is [place]. Condition is Stable. Problem is new. Symptoms have improved. pm1 05/02 01:21 05/01 21:00 Skin: Warm, dry with normal turgor. Normal color with no rashes, no pm1 lesions, and no evidence of cellulitis. MS/ Extremity: Pulses equal, no cyanosis. Neurovascular intact. Full, normal range of motion. pm1 05/02 02:57 00:24 05/01/2018 23:10 Transfer ordered to [address] Diagnosis is Multiple fractures of ribs, right side; Hyperglycemia, unspecified; Bilateral arm skin tears; Other slipping, tripping and stumbling and falls; Alcohol abuse; Hypomagnesemia. Reason for transfer: Patient request. Accepting physician is [place]. Condition is Stable. Problem is new. Symptoms have improved. pm1 04:39 02:59 Hospitalization Ordered by Gamaliel Chávez MD for Observation. Preliminary kl diagnosis is Multiple fractures of ribs, right side; Hyperglycemia, unspecified; bilateral skin tears/abrasions; Other slipping, tripping and stumbling and falls; Alcohol abuse; Hypomagnesemia. Bed requested for Telemetry/MedSurg (observation). Status is Observation. Condition is Stable. Problem is new. Symptoms have improved. UTI on Admission? No. pm1 05:33 04:39 05/02/2018 02:59 Hospitalization Ordered by Gamaliel Chávez MD for Observation. tl2 Preliminary diagnosis is Multiple fractures of ribs, right side; Hyperglycemia, unspecified; bilateral skin tears/abrasions; Other slipping, tripping and stumbling and falls; Alcohol abuse; Hypomagnesemia. Bed requested for Telemetry/MedSurg (observation). Status is Observation. Condition is Stable. Problem is new. Symptoms have improved. UTI on Admission? No. kl
[2018-05-01] MEDS ORDERED: MORPHINE 4 MG/ML SYR ONE (23:12)
[2018-05-01] MEDS ORDERED: MAGNESIUM SULFATE 1 gm IVPB 1 GM/100 ML BAG IV ONE (23:12)
[2018-05-01] MEDS ORDERED: ONDANSETRON 4 MG/2 ML VIAL ONE (23:12)
[2018-05-01 23:45] LABS: Absolute Lymphocytes (CBC) 1.8 K/uL (0.7-4.9); Absolute Monocytes 0.6 K/uL (0.1-1.3); Absolute Neutrophil 5.7 K/uL (1.8-8.0); Basophils % 0.8 % (0-1.3); Eosinophils % 0.1 % (0-4.4); Hematocrit 39.8 % (36.0-45.0); Lymphocytes % 22.1 % (15.3-44.8); MCH 25.5 pg (27.0-35.0); MCV 79.8 fL (80-100); MPV 9.5 fL (7.6-11.3); Monocytes % 7.6 % (3.3-12.3); RBC Red Blood Cell Count 4.98 M/uL (3.86-4.86)
[2018-05-01 23:59] LABS: Urine Bacteria <20 /HPF (<20); Urine Culture Reflex Order REFLEXED; Urine RBC <5 /HPF (NONE SEEN)
[2018-05-02 00:13] LABS: Urine Blood 2+ (NEG); Urine Glucose 2+ (NEG); Urine Protein 3+ (NEG); Urine Specific Gravity 1.025 (1.005-1.030); Urine pH 5.5 (5.0-7.0)
[2018-05-02] MEDS ORDERED: METOPROLOL TAR 25 MG TAB ONE (00:41)
[2018-05-02] MEDS ORDERED: MORPHINE 4 MG/ML SYR ONE (04:09)
[2018-05-02] MEDS ORDERED: ONDANSETRON 4 MG/2 ML VIAL ONE (04:09)
--- NOTE | 2018-05-02 04:24 | P.HP ---
Certification for Inpatient Patient admitted to: Observation With expected LOS: <2 Midnights Practitioner: I am a practitioner with admitting privileges, knowledge of patient current condition, hospital course, and medical plan of care. Services: Services provided to patient in accordance with Admission requirements found in Title 42 Section 412.3 of the Code of Federal Regulations Patient History Date of Service: 05/02/18 Reason for admission: Multiple rib fractures History of Present Illness: Ms Caputo is a 73-year-old woman with history of hypertension, diabetes mellitus types 2, alcohol abuse, CAD, who has been falling a home several times. She recognize that the falls are secondary to alcohol abuse. Last time she drink alcohol was yesterday, 1 large bottle of wine. She is complaining of right rib cage pain after 1 of her falls. Rib x-ray is consistent with a 8th, 9th and 10th ribs fractures. At my encounter the patient was alert and oriented. Allergies cefazolin sodium [From Ancef] Allergy (Verified 09/01/11 15:00) Hives guaifenesin [From Dura-Vent] Allergy (Verified 09/01/11 15:00) Hives phenylpropanolamine HCl [From Dura-Vent] Allergy (Verified 09/01/11 15:00) Hives NSAIDS Allergy (Mild, Uncoded 08/23/15 02:35) Increased bleeding duravant Allergy (Uncoded 11/11/14 04:40) Unknown Duravent DM Allergy (Uncoded 03/31/17 16:57) Unknown Home medications list reviewed: Yes Home Medications: Thiamine HCl [Vitamin B-1*] 100 mg PO DAILY 02/12/13 Cyanocobalamin [Vitamin B-12*] 1,000 mcg PO DAILY 07/13/15 Magnesium Oxide 420 mg PO TID 07/13/15 Multivitamin [Multivitamins] 1 each PO DAILY 07/13/15 Paroxetine HCl [Paxil] 30 mg PO BEDTIME 07/13/15 Gabapentin [Neurontin*] 300 mg PO BID 08/23/15 Pantoprazole Sodium [Protonix] 40 mg PO BID #60 tablet. 08/24/15 Albuterol Sulfate [Proair Respiclick] 2 puff IH Q6H PRN 06/11/17 Aspirin [Ecotrin 81 MG] 1 tab PO DAILY 06/11/17 Atorvastatin Calcium [Lipitor] 0.5 tab PO BEDTIME 06/11/17 Budesonide/Formoterol Fumarate [Symbicort 160-4.5 Mcg Inhaler] 1 puff IH BID 08/27 Calcium 250mg/Vitamin D 125 U 1 tab PO DAILY 06/11/17 Clopidogrel Bisulfate [Plavix*] 75 mg PO DAILY 06/11/17 Docosahexanoic AC/Epa [Fish Oil 1,000 MG*] 1,000 mg PO DAILY 06/11/17 Furosemide 20 mg PO DAILY 06/11/17 Insulin Detemir [Levemir] 20 units SQ DAILY 06/11/17 Ketorolac Opth [Acular 0.5% Opth Drops*] 1 drop EACH EYE QID 06/11/17 LIDOCAINE 4% Topical Solution [Xylocaine 4% Topical Solution*] 1 appl TOP BID PRN 06/11/17 Amlodipine [Norvasc*] 10 mg PO DAILY #30 tab 06/12/17 Metoprolol Succinate [Toprol Xl*] 50 mg PO BID #60 tab 06/12/17 Tramadol HCl [Ultram] 50 mg PO BID PRN #15 tablet 06/12/17 - Past Medical/Surgical History Diabetic: Yes -: History of Alcohol abuse -: Atrial fibrillation, not on Anticoagulation due to falls/subdural hematoma -: CAD -: DM- NIDDM -: HTN -: Depression -: Skin Cancer- removal of skin tag on clitoris -: GERD -: Anemia with history of GI bleed in the past . 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 Seen at the [place] regularly. Lives with sister. - Family History Father -: Hypertension, Diabetes, Stroke Mother -: Hypertension, Cancer Notes: Leukemia - Social History Smoking Status: Former smoker Alcohol use: Yes CD- Drugs: No Caffeine use: No Place of Residence: Home Review of Systems 10-point ROS is otherwise unremarkable Physical Examination - Physical Exam General: Alert, In no apparent distress HEENT: Atraumatic, PERRLA, Mucous membr. moist/pink, EOMI, Sclerae nonicteric Neck: Supple, 2+ carotid pulse no bruit, No LAD, Without JVD or thyroid abnormality Respiratory: Clear to auscultation bilaterally, Normal air movement Cardiovascular: Normal S1 S2, Abnormal S3 Gastrointestinal: Normal bowel sounds, No tenderness Musculoskeletal: Tenderness (Right chest wall) Integumentary: No rashes Neurological: Normal speech, Normal strength at 5/5 x4 extr, Normal tone, Normal affect Lymphatics: No axilla or inguinal lymphadenopathy - Studies Laboratory Data (last 24 hrs) 05/01/18 22:06: PT 16.7 H, INR 1.41 05/01/18 22:05: WBC 8.2, Hgb 12.7, Hct 39.8, Plt Count 212 05/01/18 20:50: Sodium 136, Potassium 4.2, BUN 18, Creatinine 1.30, Glucose 310 H, Magnesium 1.5 L, Total Bilirubin 0.4, AST 41 H, ALT 59, Alkaline Phosphatase 177 H Assessment and Plan - Problems (Diagnosis) (1) Chronic renal failure Current Visit: Yes Status: Acute Qualifiers: Chronic kidney disease stage: stage 3 (moderate) Qualified Code(s): N18.3 - Chronic kidney disease, stage 3 (moderate) (2) Multiple rib fractures Current Visit: Yes Status: Acute Qualifiers: Encounter type: initial encounter Fracture type: closed Laterality: right Qualified Code(s): S22.41XA - Multiple fractures of ribs, right side, initial encounter for closed fracture (3) Diabetes type 2, controlled Onset Date: 07/14/15 Current Visit: No Status: Chronic Qualifiers: Diabetes mellitus assisted insulin use: with assisted use Diabetes mellitus complication status: with unspecified complications Qualified Code(s) : E11.8 - Type 2 diabetes mellitus with unspecified complications; Z79.4 - detention (current) use of insulin (4) Falls Onset Date: 07/14/15 Current Visit: No Status: Chronic Qualifiers: Encounter type: initial encounter Qualified Code(s): W19.XXXA - Unspecified fall, initial encounter (5) Hypertension Current Visit: No Status: Chronic Qualifiers: Hypertension type: essential hypertension Qualified Code(s): I10 - Essential (primary) hypertension - Plan The patient will be admitted to the hospital due to pain control secondary to multiple rib fractures on the right side. Will consult PT. Watch for withdrawal symptoms. Will order multivitamin IV infusion. - Advance Directives Does patient have a Living Will: Yes Does patient have a Durable POA for Healthcare: Yes - Code Status/Comfort Care Code Status Assessed: Yes Code Status: Full Code
[2018-05-02] MEDS ORDERED: ONDANSETRON 4 MG/2 ML VIAL IV PRN (05:02)
[2018-05-02] MEDS ORDERED: ACETAMINOPHEN 500 MG TAB PO PRN (05:02)
[2018-05-02 05:40] VITALS: BMI 25.6
[2018-05-02] MEDS: TRAMADOL HCL 50 MG TAB PO PRN ×2 (06:10→20:46)
[2018-05-02] MEDS: NA CHLORIDE 0.9% 1,000 ML IV SCH ×2 (06:11→20:47)
[2018-05-02] MEDS: FOLIC ACID 1 MG, MULTIVITAMINS INJ 10 ML, THIAMINE HCL 100 MG in NA CHLORIDE 0.9% 1,000 ML IV SCH (10:38)
[2018-05-02] MEDS: ENOXAPARIN 40 MG/0.4 ML SQ SCH (10:39)
[2018-05-02] MEDS: INSULIN -REGULAR HUMAN 50 UNIT/0.5 ML ML SQ SCH ×4 (10:39→21:41)
[2018-05-02] MEDS: HYDROCODONE/APAP 10/325 TAB PO PRN ×3 (11:18→23:06)
--- NOTE | 2018-05-02 12:12 | EKG ---
Test Date: 2018-05-01 Test Time: 22:28:24 Business Architect: DIMAS MEASUREMENT RESULTS: Intervals: Rate: 99 MD: 194 QRSD: 114 QT: 408 QTc: 523 [place]: P: 76 MD: 194 QRS: -30 T: 34 INTERPRETIVE STATEMENTS: Normal sinus rhythm Left axis deviation Incomplete right bundle branch block Septal infarct, age undetermined Prolonged QT Abnormal ECG Compared to ECG 11/19/2017 22:50:45 Left-axis deviation now present Incomplete right bundle-branch block now present Prolonged QT interval now present Sinus tachycardia no longer present Atrial premature complex(es) no longer present Electronically Signed On 05-02-18 12:10:21 CDT by Dnai Agarwal
[2018-05-03] MEDS ORDERED: LORazepam 2 MG/ML VIAL IV ONE (02:28)
[2018-05-03 05:44] LABS: Absolute Lymphocytes (CBC) 1.4 K/uL (0.7-4.9); Absolute Monocytes 0.5 K/uL (0.1-1.3); Absolute Neutrophil 3.4 K/uL (1.8-8.0); Basophils % 0.5 % (0-1.3); Eosinophils % 2.1 % (0-4.4); Hematocrit 32.9 % (36.0-45.0); Lymphocytes % 25.3 % (15.3-44.8); MCH 26.6 pg (27.0-35.0); MCV 79.7 fL (80-100); MPV 8.9 fL (7.6-11.3); Monocytes % 8.9 % (3.3-12.3); RBC Red Blood Cell Count 4.13 M/uL (3.86-4.86)
[2018-05-03 05:58] LABS: Potassium 3.8 mmol/L (3.5-5.1)
[2018-05-03] MEDS: INSULIN -REGULAR HUMAN 50 UNIT/0.5 ML ML SQ SCH ×4 (07:30→21:00)
[2018-05-03] MEDS: NA CHLORIDE 0.9% 1,000 ML IV SCH (07:33)
[2018-05-03] MEDS ORDERED: POTASSIUM 25 MEQ EFFERV TAB PO ONE (09:00)
[2018-05-03] MEDS: ENOXAPARIN 40 MG/0.4 ML SQ SCH (09:20)
[2018-05-03] MEDS: HYDROCODONE/APAP 10/325 TAB PO PRN ×2 (09:20→18:08)
[2018-05-03] MEDS: FOLIC ACID 1 MG, MULTIVITAMINS INJ 10 ML, THIAMINE HCL 100 MG in NA CHLORIDE 0.9% 1,000 ML IV SCH (11:54)
[2018-05-03] MEDS ORDERED: PANTOPRAZOLE 40MG TABLET PO ONE (12:17)
--- NOTE | 2018-05-03 13:27 | P.PN ---
Subjective Date of Service: 05/03/18 Chief Complaint: Multiple rib fractures Patient seen and examined at bedside. No family at bedside. Case discussed with nursing staff. Patient seems more confused this morning, unable to clearly express her own thoughts. Nursing staff reports that overnight patient was agitated and was given some Ativan to help calm her down. She still complains of rib pain but states that the [place] 10 has been helping her pain a lot more. Review of Systems As noted above Physical Examination - Vital Signs Temperature: 97.0 F Blood Pressure: 150/70 Pulse: 91 Respirations: 16 Pulse Ox (%): 91 - Physical Exam General: Alert, Moderate distress, Other (More confused, unable to express her thoughts clearly.) HEENT: Atraumatic, PERRLA, EOMI Neck: Supple, JVD not distended Respiratory: Clear to auscultation bilaterally, Normal air movement Cardiovascular: Regular rate/rhythm, Normal S1 S2 Gastrointestinal: Normal bowel sounds, No tenderness Musculoskeletal: No erythema, No warmth, Tenderness (Located on right-sided chest wall) Integumentary: No rashes Neurological: Normal tone - Studies Laboratory Data (last 24 hrs) 05/03/18 05:15: Sodium 140, Potassium 3.8, BUN 11, Creatinine 1.00, Glucose 208 H 05/03/18 05:15: WBC 5.4 D, Hgb 11.0 L, Hct 32.9 L D, Plt Count 152 D Medications List Reviewed: Yes Assessment And Plan - Current Problems (Diagnosis) (1) Multiple rib fractures Onset Date: 05/03/18 Current Visit: Yes Status: Acute Plan: This is a patient with multiple, recurrent fall with secondary to alcohol intoxication. Pain control with oral pain medications only. She is currently getting tramadol. She was also getting [place] 10/325. Her confusion could possibly be secondary to Rochester so dosage decreased to 5/325 mg. Qualifiers: Encounter type: initial encounter Fracture type: closed Laterality: right Qualified Code(s): S22.41XA - Multiple fractures of ribs, right side, initial encounter for closed fracture (2) Alcohol abuse Current Visit: Yes Status: Acute Plan: Per patient will she has cut down on alcohol drinking but for the past 3 weeks her sister had been in the hospital and therefore she went on about alcohol and started drinking again. She has a history of undergoing rehab for the same problem, but states that it did not help. She states that her last drink was 2 days ago. Though unsure if patient would like to go back to rehab again. Continue alcohol withdrawal assessments q. 4 hrs. Continue IV fluids, thiamine and folate. (3) Altered mental status Current Visit: No Status: Acute Plan: Patient with more confusion this morning. Could possibly be secondary to Ativan that she received yesterday or the Rochester that she has been getting for her pain control. Will decrease Rochester dosage and monitor. Qualifiers: Altered mental status type: unspecified Qualified Code(s): R41.82 - Altered mental status, unspecified (4) Hypertension Onset Date: 05/03/18 Current Visit: Yes Status: Chronic Plan: Elevated this morning. Will restart home medications once medications has been reconciled P.r.n. medications ordered. Qualifiers: Hypertension type: essential hypertension Qualified Code(s): I10 - Essential (primary) hypertension (5) Depression Current Visit: No Status: Chronic Plan: Patient with history of chronic depression, need to get home medications so they can be reconciled. Patient he uses [facility] mail-order pharmacy and does not have a list of her home medications with her at this time. Will attempt to contact me sooner sister to get a list of her medications. Denies any suicidal or homicidal ideations at this time. Continue to monitor Qualifiers: Depression Type: unspecified Qualified Code(s): F32.9 - Major depressive disorder, single episode, unspecified (6) Diabetes mellitus Current Visit: No Status: Chronic Plan: Continue Accu-Cheks, sliding scale insulin. Will adjust as needed Qualifiers: Diabetes mellitus type: type 2 Diabetes mellitus group home insulin use: with group home use Diabetes mellitus complication status: with hypoglycemia Diabetes mellitus complication detail: without coma Qualified Code(s): E11.649 - Type 2 diabetes mellitus with hypoglycemia without coma; Z79.4 - senior living (current) use of insulin; Z79.4 - senior living (current) use of insulin; Z79.4 - watermelon harvesting supervisor (current) use of insulin; Z79.4 - watermelon harvesting supervisor (current) use of insulin (7) Falls Onset Date: 07/14/15 Current Visit: No Status: Chronic Plan: Likely secondary to alcohol intoxication. Physical therapy order placed. Qualifiers: Encounter type: initial encounter Qualified Code(s): W19.XXXA - Unspecified fall, initial encounter - Plan She would not be a safe discharge today due to her altered mentation, confusion and may require more than 2 inpatient nights. Discharge Plan: Home Plan to discharge in: Greater than 2 days
[2018-05-03] MEDS ORDERED: HOME MED 1 EA UNK (Albuterol Sulfate [Proair Respiclick] 2 PUFF) IH PRN (17:09)
[2018-05-03] MEDS ORDERED: HOME MED 1 EA UNK (Donepezil Hcl [Donepezil Hcl] 1 TAB) PO SCH (21:00)
[2018-05-03] MEDS ORDERED: HOME MED 1 EA UNK (Budesonide/Formoterol Fumarate [Symbicort 160-4.5 Mcg Inhaler] 2 PUFF) IH SCH (21:00)
[2018-05-03] MEDS ORDERED: KETOROLAC OPTH EACH EYE SCH (21:00)
[2018-05-03] MEDS ORDERED: MAGNESIUM OXIDE 420 MG PO SCH (21:00)
[2018-05-03] MEDS ORDERED: FLUTICASONE PROPIONATE IH SCH (21:00)
[2018-05-03] MEDS ORDERED: BACITRACIN OINTMENT 28 GM TUBE TOP SCH (21:00)
[2018-05-03] MEDS ORDERED: [UNRECOGNIZED DRUG - OTHER] IH SCH (21:00)
[2018-05-03] MEDS: LISINOPRIL 20 MG TAB PO SCH (21:01)
[2018-05-03] MEDS: GABAPENTIN 300 MG CAP PO SCH (21:01)
[2018-05-03] MEDS: ATORVASTATIN 20 MG TAB PO SCH (21:02)
[2018-05-03] MEDS: DONEPEZIL HCL 5 MG TAB PO SCH (21:02)
[2018-05-03] MEDS: MAGNESIUM OXIDE 400 MG TAB PO SCH (21:02)
[2018-05-03] MEDS: PROMOD 30 ML DOSE PO SCH (21:04)
[2018-05-03] MEDS: TRAMADOL HCL 50 MG TAB PO PRN (21:20)
[2018-05-03] MEDS: CETIRIZINE HCL 5 MG TABLET PO SCH (21:22)
[2018-05-04] MEDS: METOPROLOL XL 50 MG TAB PO SCH ×3 (03:33→12:34)
[2018-05-04] MEDS: TRAMADOL HCL 50 MG TAB PO PRN ×2 (03:33→22:26)
[2018-05-04] MEDS: PANTOPRAZOLE 40MG TABLET PO SCH (06:41)
[2018-05-04] MEDS: INSULIN -REGULAR HUMAN 50 UNIT/0.5 ML ML SQ SCH ×4 (07:30→21:15)
[2018-05-04 08:06] LABS: Potassium 4.1 mmol/L (3.5-5.1)
[2018-05-04] MEDS: LIDOCAINE 5% PATCH TOP SCH (08:46)
[2018-05-04] MEDS: PARoxetine HCl 10 MG TAB PO SCH (08:50)
[2018-05-04] MEDS: DOCOSAHEXANOIC AC/EPA 1000 MG PO SCH (08:50)
[2018-05-04] MEDS: ASPIRIN EC 325 MG TABLET PO SCH (08:50)
[2018-05-04] MEDS: MULTIVITAMIN TAB PO SCH (08:50)
[2018-05-04] MEDS: THIAMINE HCL 100 MG TABLET PO SCH (08:50)
[2018-05-04] MEDS: GABAPENTIN 300 MG CAP PO SCH ×2 (08:52→21:14)
[2018-05-04] MEDS: ENOXAPARIN 40 MG/0.4 ML SQ SCH (08:52)
[2018-05-04] MEDS: CETIRIZINE HCL 5 MG TABLET PO SCH (08:52)
[2018-05-04] MEDS: FOLIC ACID 1 MG, MULTIVITAMINS INJ 10 ML, THIAMINE HCL 100 MG in NA CHLORIDE 0.9% 1,000 ML IV SCH (08:53)
[2018-05-04] MEDS: INSULIN GLARGINE 100 UNITS/ML SQ SCH (08:53)
[2018-05-04] MEDS ORDERED: [UNRECOGNIZED DRUG - MIXTURE] PO SCH (09:00)
[2018-05-04] MEDS ORDERED: TIOTROPIUM 5 SPRAYS/INHALER IH SCH (09:00)
[2018-05-04] MEDS: PROMOD 30 ML DOSE PO SCH ×2 (09:00→21:16)
[2018-05-04] MEDS ORDERED: HOME MED 1 EA UNK (Aspirin [Aspirin Ec 325 Mg] 1 TAB) PO SCH (09:00)
[2018-05-04] MEDS ORDERED: HOME MED 1 EA UNK (Paroxetine Hcl [Paxil] 30 MG) PO SCH (09:00)
[2018-05-04] MEDS ORDERED: [UNRECOGNIZED DRUG - REMARK] PO SCH (09:00)
[2018-05-04] MEDS ORDERED: HOME MED 1 EA UNK (Multivitamin [Multivitamins] 1 EACH) PO SCH (09:00)
[2018-05-04] MEDS: CALCIUM 250 MG/VITAMIN D 125 IU TAB PO SCH (09:00)
[2018-05-04] MEDS ORDERED: INSULIN DETEMIR 20 UNIT SQ SCH (09:00)
[2018-05-04] MEDS: HYDROCODONE/APAP 10/325 TAB PO PRN (12:43)
[2018-05-04] MEDS: NA CHLORIDE 0.9% 1,000 ML IV SCH ×2 (17:02→21:26)
--- NOTE | 2018-05-04 18:01 | P.PN ---
Subjective Date of Service: 05/04/18 Chief Complaint: Multiple rib fractures Patient seen and examined at bedside. No family at bedside. Case discussed with nursing staff. Patient looking better this morning, sitting up in bed reading a book. Complaints of rib pain and states that Kemp 10 has been helping her pain a lot more than prior medications. No events overnight. Review of Systems As noted above Physical Examination - Vital Signs Temperature: 97.4 F Blood Pressure: 192/100 Pulse: 81 Respirations: 17 Pulse Ox (%): 92 - Physical Exam General: Alert, In no apparent distress, Oriented x3 HEENT: Atraumatic, PERRLA, EOMI Neck: Supple, JVD not distended Respiratory: Clear to auscultation bilaterally, Normal air movement Cardiovascular: Regular rate/rhythm, Normal S1 S2 Gastrointestinal: Normal bowel sounds, No tenderness Musculoskeletal: No tenderness Integumentary: No rashes Neurological: Normal speech, Normal tone, Normal affect Lymphatics: No axilla or inguinal lymphadenopathy - Studies Microbiology Data (last 24 hrs): 05/01/18 22:00 Clean Catch Urine [place] Count - Final BETWEEN 10,000 & 100,000 CFU/ML 05/01/18 22:00 Clean Catch Urine - Final Medications List Reviewed: Yes Assessment And Plan - Current Problems (Diagnosis) (1) Multiple rib fractures Onset Date: 05/03/18 Current Visit: Yes Status: Acute Plan: This is a patient with multiple, recurrent fall with secondary to alcohol intoxication. Pain control with oral pain medications only. She is currently getting tramadol. She was also getting Kemp 10/325. Her confusion could possibly be secondary to Kemp so dosage decreased to 5/325 mg. Qualifiers: Encounter type: initial encounter Fracture type: closed Laterality: right Qualified Code(s): S22.41XA - Multiple fractures of ribs, right side, initial encounter for closed fracture (2) Alcohol abuse Onset Date: 05/04/18 Current Visit: Yes Status: Acute Plan: Per patient will she has cut down on alcohol drinking but for the past 3 weeks her sister had been in the hospital and therefore she went on about alcohol and started drinking again. She has a history of undergoing rehab for the same problem, but states that it did not help. She states that her last drink was 2 days ago. Though unsure if patient would like to go back to rehab again. Continue alcohol withdrawal assessments q. 4 hrs. Continue IV fluids, thiamine and folate. (3) Altered mental status Current Visit: No Status: Acute Plan: Patient with more confusion this morning. Could possibly be secondary to Ativan that she received yesterday or the Kemp that she has been getting for her pain control. Will decrease Kemp dosage and monitor. Qualifiers: Altered mental status type: unspecified Qualified Code(s): R41.82 - Altered mental status, unspecified (4) Hypertension Onset Date: 05/03/18 Current Visit: Yes Status: Chronic Plan: Elevated this morning. Will restart home medications once medications has been reconciled P.r.n. medications ordered. Qualifiers: Hypertension type: essential hypertension Qualified Code(s): I10 - Essential (primary) hypertension (5) Depression Current Visit: No Status: Chronic Plan: Patient with history of chronic depression, need to get home medications so they can be reconciled. Patient he uses [facility] mail-order pharmacy and does not have a list of her home medications with her at this time. Will attempt to contact me sooner sister to get a list of her medications. Denies any suicidal or homicidal ideations at this time. Continue to monitor Qualifiers: Depression Type: unspecified Qualified Code(s): F32.9 - Major depressive disorder, single episode, unspecified (6) Diabetes mellitus Current Visit: No Status: Chronic Plan: Continue Accu-Cheks, sliding scale insulin. Will adjust as needed Qualifiers: Diabetes mellitus type: type 2 Diabetes mellitus laborer marine terminal insulin use: with laborer marine terminal use Diabetes mellitus complication status: with hypoglycemia Diabetes mellitus complication detail: without coma Qualified Code(s): E11.649 - Type 2 diabetes mellitus with hypoglycemia without coma; Z79.4 - [facility] (current) use of insulin; Z79.4 - [facility] (current) use of insulin; Z79.4 - [facility] (current) use of insulin; Z79.4 - [facility] (current) use of insulin (7) Falls Onset Date: 07/14/15 Current Visit: No Status: Chronic Plan: Likely secondary to alcohol intoxication. Physical therapy order placed. Qualifiers: Encounter type: initial encounter Qualified Code(s): W19.XXXA - Unspecified fall, initial encounter - Plan Likely discharge home tomorrow. Discharge Plan: Home Plan to discharge in: 24 Hours
[2018-05-04] MEDS: HYDRALAZINE HCL 20 MG/ML VIAL IV PRN (18:34)
[2018-05-04] MEDS ORDERED: HYDROCODONE/APAP 5/325 MG TAB PO PRN (19:50)
[2018-05-04] MEDS: ATORVASTATIN 20 MG TAB PO SCH (21:13)
[2018-05-04] MEDS: DONEPEZIL HCL 5 MG TAB PO SCH (21:14)
[2018-05-04] MEDS: LISINOPRIL 20 MG TAB PO SCH (21:14)
[2018-05-04] MEDS: MAGNESIUM OXIDE 400 MG TAB PO SCH (21:14)
[2018-05-05] MEDS: HYDRALAZINE HCL 20 MG/ML VIAL IV PRN (03:45)
[2018-05-05] MEDS: PANTOPRAZOLE 40MG TABLET PO SCH (05:56)
[2018-05-05 08:06] LABS: Potassium 3.8 mmol/L (3.5-5.1)
[2018-05-05] MEDS: INSULIN -REGULAR HUMAN 50 UNIT/0.5 ML ML SQ SCH ×2 (08:15→11:30)
[2018-05-05 08:20] LABS: Magnesium 1.4 mg/dL (1.8-2.4)
[2018-05-05] MEDS ORDERED: MAGNESIUM 50% 3 GM in NA CHLORIDE 0.9% 100 ML IV ONE (08:24)
[2018-05-05] MEDS ORDERED: Magnesium Sulfate 2gm IVPB 2 G/50 ML BAG IV SCH (09:00)
[2018-05-05] MEDS: LIDOCAINE 5% PATCH TOP SCH (09:16)
[2018-05-05] MEDS: THIAMINE HCL 100 MG TABLET PO SCH (09:17)
[2018-05-05] MEDS: METOPROLOL XL 50 MG TAB PO SCH (09:18)
[2018-05-05] MEDS: PARoxetine HCl 10 MG TAB PO SCH (09:18)
[2018-05-05] MEDS: TRAMADOL HCL 50 MG TAB PO PRN (09:18)
[2018-05-05] MEDS: CETIRIZINE HCL 5 MG TABLET PO SCH (09:19)
[2018-05-05] MEDS: ASPIRIN EC 325 MG TABLET PO SCH (09:19)
[2018-05-05] MEDS: DOCOSAHEXANOIC AC/EPA 1000 MG PO SCH (09:19)
[2018-05-05] MEDS: INSULIN GLARGINE 100 UNITS/ML SQ SCH (09:20)
[2018-05-05] MEDS: GABAPENTIN 300 MG CAP PO SCH (09:22)
[2018-05-05] MEDS: MULTIVITAMIN TAB PO SCH (09:22)
[2018-05-05] MEDS: ENOXAPARIN 40 MG/0.4 ML SQ SCH (09:22)
[2018-05-05] MEDS: CALCIUM 250 MG/VITAMIN D 125 IU TAB PO SCH (09:40)
[2018-05-05] MEDS: PROMOD 30 ML DOSE PO SCH (09:41)
[2018-05-05] MEDS: FOLIC ACID 1 MG, MULTIVITAMINS INJ 10 ML, THIAMINE HCL 100 MG in NA CHLORIDE 0.9% 1,000 ML IV SCH (09:42)
[2018-05-05 10:15] VITALS: O2SAT 94
[2018-05-05 14:18] VITALS: BP 121/66; TEMP 98.1
== END 2018-05-05 17:31 | disposition home health service (06) | DRG 185 ==
LOC: ER 20:10 → ERHOLD 05-02 04:05 → 2ND 05-02 05:04 → OBSVTOIN 05-03 13:15
PROVIDERS: ADMIT Internal Medicine; ATTEND Family Medicine
DX: S22.41XA Multiple fractures of ribs, right side, initial encounter for closed fracture (principal); W01.0XXA Fall on same level from slipping, tripping and stumbling without subsequent striking against object, initial encounter; Z91.81 History of falling; Y93.01 Activity, walking, marching and hiking; Y92.019 Unspecified place in single-family (private) house as the place of occurrence of the external cause; F10.10 Alcohol abuse, uncomplicated; I25.10 Atherosclerotic heart disease of native coronary artery without angina pectoris; F32.9 Major depressive disorder, single episode, unspecified; K21.9 Gastro-esophageal reflux disease without esophagitis; Z87.891 Personal history of nicotine dependence; I48.91 Unspecified atrial fibrillation; E11.8 Type 2 diabetes mellitus with unspecified complications; Z79.4 Long term (current) use of insulin; I12.9 Hypertensive chronic kidney disease with stage 1 through stage 4 chronic kidney disease, or unspecified chronic kidney disease; E11.22 Type 2 diabetes mellitus with diabetic chronic kidney disease; N18.3 Chronic kidney disease, stage 3 (moderate); E11.649 Type 2 diabetes mellitus with hypoglycemia without coma
CPT/HCPCS: 36415; 70450; 71045; 72125; 72170; 80048; 80076; 80320; 81003; 81015; 82805; 82962; 83735; 83880; 84484; 85025; 85610; 87086; 87088; 93005; 97163; 99285; G0378; J0360; J1650; J2405; J3411; J3475; J7030

== ENCOUNTER 2018-10-26 13:56 | Emergency (ER) | payer OTHER ==
--- NOTE | 2018-10-26 14:28 | ER ---
Nurse's Notes [facility] Name: Shelli Caputo Age: 73 yrs Sex: Female : 1945 Arrival Date: 10/26/2018 Time: 13:59 Bed 20 Private MD: Diagnosis: Hyperglycemia, unspecified Presentation: 10/26 14:01 Presenting complaint: Patient states: I was at the dentist office and they did a blood sg sugar and my blood sugar was 489 or something, so then I found some insulin in my purse and gave myself a shot so I dont know what it is now. Presenting complaint:. Transition of care: patient was not received from another setting of care. Onset of symptoms was October 26, 2018. Risk Assessment: Do you want to hurt yourself or someone else? Patient reports no desire to harm self or others. Initial Sepsis Screen: Does the patient meet any 2 criteria? No. Patient's initial sepsis screen is negative. Does the patient have a suspected source of infection? No. Patient's initial sepsis screen is negative. Care prior to arrival: None. 14:01 Method Of Arrival: Ambulatory sg 14:01 Acuity: JESSICA 3 sg Historical: - Allergies: 14:02 cefazolin sodium; sg 14:02 Duravent DM; sg 14:02 GUAIFENESIN; sg 14:02 NSAIDS; sg 14:02 phenylpropanolamine HCl; sg - PMHx: 14:02 CHF; COPD; CVA; Diabetes- IDDM; sg - Immunization history:: Adult Immunizations up to date. - Social history:: Smoking status: Patient/guardian denies using tobacco. - Ebola Screening: : Patient negative for fever greater than or equal to 101.5 degrees Fahrenheit, and additional compatible Ebola Virus Disease symptoms Patient denies exposure to infectious person Patient denies travel to an Ebola-affected area in the 21 days before illness onset No symptoms or risks identified at this time. Screenin:10 Abuse screen: Denies threats or abuse. Denies injuries from another. Nutritional jl7 screening: No deficits noted. Tuberculosis screening: No symptoms or risk factors identified. Fall Risk None identified. Assessment: 14:10 General: Appears in no apparent distress. comfortable, Behavior is calm, cooperative, jl7 appropriate for age. Pain: Denies pain. Neuro: Level of Consciousness is awake, alert, obeys commands, Oriented to person, place, time, situation. Cardiovascular: Patient's skin is warm and dry. Respiratory: Airway is patent Respiratory effort is even, unlabored, Respiratory pattern is regular, symmetrical. GI: No signs and/or symptoms were reported involving the gastrointestinal system. Patient currently denies diarrhea, nausea. : No signs and/or symptoms were reported regarding the genitourinary system. EENT: No signs and/or symptoms were reported regarding the EENT system. Derm: Skin is pink, warm \T\ dry. Musculoskeletal: No signs and/or symptoms reported regarding the musculoskeletal system. Vital Signs: 14:01 BP 125 / 90; Pulse 90; Resp 16; Temp 98.6; Pulse Ox 100% on R/A; sg ED Course: 13:59 Patient arrived in ED. mr 14:01 Suzette Espinosa RN is Primary Nurse. [facility] 14:01 Cristian Diaz PA is PHCP. [facility] 14:01 Estrada Hobbs MD is Attending Physician. [facility] 14:02 Triage completed. sg 14:02 Arm band placed on. sg 14:21 Patient has correct armband on for positive identification. Bed in low position. Call 5 light in reach. Side rails up X 1. Pulse ox on. NIBP on. 14:21 Urine collected: clean catch specimen, clear. [facility] 14:32 No provider procedures requiring assistance completed. Patient did not have IV access [facility] during this emergency room visit. Administered Medications: No medications were administered Point of Care Testing: Blood Glucose: 14:30 Blood Glucose: 386 mg/dL; 7 Ranges: Outcome: 14:28 Discharge ordered by . jr8 14:32 Discharged to home ambulatory, with family. jl7 14:32 Condition: stable 14:32 Discharge instructions given to patient, family, Instructed on discharge instructions, follow up and referral plans. Demonstrated understanding of instructions, follow-up care. 14:36 Patient left the ED. jl7 Signatures: Thomas Yen, RN KERON Shelli Tucker mr Cristian Diaz PA PA Maggie Miller [facility] Suzette Espinosa RN RN [facility] Corrections: (The following items were deleted from the chart) 14:32 14:10 No provider procedures requiring assistance completed. jl7 7 14:32 14:10 Patient did not have IV access during this emergency room visit. jl7 jl7
--- NOTE | 2018-10-26 14:28 | EDPHYS ---
Physician Documentation [facility] Name: Shelli Caputo Age: 73 yrs Sex: Female : 1945 Arrival Date: 10/26/2018 Time: 13:59 Bed 20 Private MD: ED Physician Estrada Hobbs HPI: 10/26 14:29 This 73 yrs old Female presents to ER via Ambulatory with complaints of High jr8 Blood Sugar. 14:29 The patient or guardian reports hyperglycemia, that was potentially precipitated by no jr8 particular event, Treatment prior to arrival includes: taking additional insulin. Onset: The symptoms/episode began/occurred chronic. Associated signs and symptoms: Pertinent positives: None. Pertinent negatives: decreased urine output, diaphoresis, nausea, polydipsia, polyphagia, polyuria, vomiting. Current symptoms: In the emergency department the patient's symptoms No symptoms; no complaints. The patient has been recently seen by a physician: the patient's primary care provider. Patient presents stating she was told by a clinic that she needed to come to the ED for a blood sugar in the 400s while attempting to get dental work done today. Patient states she is a diabetic and does not routinely check her sugar, and that elevated glucose is normal for her. Patient denies symptoms at this time. No complaints. 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 Patient normally takes 20 units but her insulin pen malfunctioned. States she has another pen at home but has not been home yet to use it. Historical: - Allergies: 14:02 cefazolin sodium; sg 14:02 Duravent DM; sg 14:02 GUAIFENESIN; sg 14:02 NSAIDS; sg 14:02 phenylpropanolamine HCl; sg - PMHx: 14:02 CHF; COPD; CVA; Diabetes- IDDM; sg - Immunization history:: Adult Immunizations up to date. - Social history:: Smoking status: Patient/guardian denies using tobacco. - Ebola Screening: : Patient negative for fever greater than or equal to 101.5 degrees Fahrenheit, and additional compatible Ebola Virus Disease symptoms Patient denies exposure to infectious person Patient denies travel to an Ebola-affected area in the 21 days before illness onset No symptoms or risks identified at this time. ROS: 14:29 Constitutional: Negative for fever, chills, and weight loss, Eyes: Negative for injury, jr8 pain, redness, and discharge, ENT: Negative for injury, pain, and discharge, Cardiovascular: Negative for chest pain, palpitations, and edema, Respiratory: Negative for shortness of breath, cough, wheezing, and pleuritic chest pain, Abdomen/GI: Negative for abdominal pain, nausea, vomiting, diarrhea, and constipation, Skin: Negative for injury, rash, and discoloration, Neuro: Negative for headache, weakness, numbness, tingling, and seizure. Exam: 14:33 Constitutional: This is a well developed, well nourished patient who is awake, alert, jr8 and in no acute distress. Cardiovascular: Regular rate and rhythm with a normal S1 and S2. No gallops, murmurs, or rubs. Normal PMI, no JVD. No pulse deficits. Respiratory: Lungs have equal breath sounds bilaterally, clear to auscultation and percussion. No rales, rhonchi or wheezes noted. No increased work of breathing, no retractions or nasal flaring. Abdomen/GI: Soft, non-tender, with normal bowel sounds. No distension or tympany. No guarding or rebound. No evidence of tenderness throughout. Skin: Warm, dry with normal turgor. Normal color with no rashes, no lesions, and no evidence of cellulitis. MS/ Extremity: Pulses equal, no cyanosis. Neurovascular intact. Full, normal range of motion. Neuro: Awake and alert, GCS 15, oriented to person, place, time, and situation. Cranial nerves II-XII grossly intact. Motor strength 5/5 in all extremities. Sensory grossly intact. Cerebellar exam normal. Normal gait. Vital Signs: 14:01 BP 125 / 90; Pulse 90; Resp 16; Temp 98.6; Pulse Ox 100% on R/A; sg MDM: 14:01 Patient medically screened. jr8 14:33 Differential diagnosis: hyperglycemia. Data reviewed: vital signs, nurses notes. jr8 Counseling: I had a detailed discussion with the patient and/or guardian regarding: the historical points, exam findings, and any diagnostic results supporting the discharge/admit diagnosis, the need for outpatient follow up, a family practitioner, to return to the emergency department if symptoms worsen or persist or if there are any questions or concerns that arise at home. ED course: Spoke with patient regarding her condition. Patient has no complaints at this time and looks well in the ED. Patient given the option of treatment of an insulin bolus and monitoring here in the ED or to be discharged home to continue home treatment. Patient elected to be discharged to continue with her home insulin plan and follow up with her PCP. . 10/26 14:06 Order name: Glucose Level; Complete Time: 14:30 jr8 Administered Medications: No medications were administered Point of Care Testing: Blood Glucose: 14:30 Blood Glucose: 386 mg/dL; jl7 Ranges: Critical Glucose Levels:Adult <50 mg/dl or >400 mg/dl <40 mg/dl or >180 mg/dl Disposition: 10/26/18 14:28 Discharged to Home. Impression: Hyperglycemia, unspecified. - Condition is Stable. - Discharge Instructions: Blood Glucose Monitoring, Adult, Hyperglycemia, [id number]. - Medication Reconciliation Form, Thank You Letter, Antibiotic Education, Prescription Opioid Use form. - Follow up: Private Physician; When: 1 - 2 days; Reason: Worsening of condition, Recheck today's complaints, Continuance of care, Re-evaluation by your physician. - Problem is chronic. - Symptoms are unchanged. Addendum: 10/29/2018 00:11 Co-signature as Attending Physician, Estrada Hobbs MD. g s Signatures: Thomas Yen RN RN Cristian Cameron PA PA jr8 Suzette Espinosa RN RN jl7 Estrada Hobbs MD MD Corrections: (The following items were deleted from the chart) 10/26 14:36 14:28 10/26/2018 14:28 Discharged to Home. Impression: Hyperglycemia, unspecified. jl7 Condition is Stable. Forms are Medication Reconciliation Form, Thank You Letter, Antibiotic Education, Prescription Opioid Use. Follow up: Private Physician; When: 1 - 2 days; Reason: Worsening of condition, Recheck today's complaints, Continuance of care, Re-evaluation by your physician. Problem is chronic. Symptoms are unchanged. jr8
[2018-10-26 14:47] VITALS: BP 125/90; TEMP 98.6; O2SAT 100
== END 2018-10-26 14:36 | disposition home or self-care (01) ==
LOC: ER 13:56
DX: E11.65 Type 2 diabetes mellitus with hyperglycemia (principal); J44.9 Chronic obstructive pulmonary disease, unspecified; I50.9 Heart failure, unspecified; Z88.6 Allergy status to analgesic agent; Z88.8 Allergy status to other drugs, medicaments and biological substances
CPT/HCPCS: 82962; 99283

== ENCOUNTER 2018-12-23 15:15 | Emergency (ER) | payer OTHER ==
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
[2018-12-23] MEDS ORDERED: HYDROCODONE/APAP 5/325 MG TAB ONE (17:03)
--- NOTE | 2018-12-23 17:19 | EDPHYS ---
Physician Documentation [facility] Name: Shelli Caputo Age: 73 yrs Sex: Female : 1945 Arrival Date: 12/23/2018 Time: 15:21 Bed 18 Private MD: Unknown, Unknown ED Physician Estrada Hobbs HPI: 12/23 17:52 This 73 yrs old Female presents to ER via Ambulatory with complaints of Fall snw Injury, Low Blood Sugar. 17:52 Details of fall: The patient fell from an upright position, while standing. Onset: The snw symptoms/episode began/occurred suddenly, last night. Associated injuries: The patient sustained dorsal aspect of left forearm and right trunk, contusion. Severity of symptoms: At their worst the symptoms were moderate. The patient has experienced similar episodes in the past. The patient has been recently seen by a physician: with different complaint(s), lab tests were performed, [facility]. Pt states she has been intentionally eating less so she can decrease her A1C and have cataract repair to right. Historical: - Allergies: 15:33 cefazolin sodium; la1 15:33 Duravent DM; la1 15:33 GUAIFENESIN; la1 15:33 NSAIDS; la1 15:33 phenylpropanolamine HCl; la1 - PMHx: 15:33 CHF; COPD; CVA; Diabetes- IDDM; la1 - Immunization history:: Adult Immunizations up to date. - Social history:: Smoking status: Patient/guardian denies using tobacco. - Ebola Screening: : No symptoms or risks identified at this time. ROS: 17:33 Constitutional: Negative for fever, chills, and weight loss, Eyes: Negative for injury, snw pain, redness, and discharge, ENT: Negative for injury, pain, and discharge, Neck: Negative for injury, pain, and swelling, Cardiovascular: Negative for chest pain, palpitations, and edema, Respiratory: Negative for shortness of breath, cough, wheezing, and pleuritic chest pain, Abdomen/GI: Negative for abdominal pain, nausea, vomiting, diarrhea, and constipation, Back: Negative for injury and pain, : Negative for injury, bleeding, discharge, and swelling, MS/Extremity: Negative for deformity, + fx per Elfego Rios MD +edema to distal forearm 17:33 Neuro: Negative for headache, weakness, numbness, tingling, and seizure, Psych: Negative for depression, anxiety, suicide ideation, homicidal ideation, and hallucinations. 17:33 Skin: Positive for Negative for laceration(s). Exam: 17:32 Constitutional: This is a well developed, well nourished patient who is awake, alert, snw and in no acute distress. Head/Face: Normocephalic, atraumatic. Eyes: Pupils equal round and reactive to light, extra-ocular motions intact. Lids and lashes normal. Conjunctiva and sclera are non-icteric and not injected. Cornea within normal limits. Periorbital areas with no swelling, redness, or edema. ENT: Nares patent. No nasal discharge, no septal abnormalities noted. Tympanic membranes are normal and external auditory canals are clear. Oropharynx with no redness, swelling, or masses, exudates, or evidence of obstruction, uvula midline. Mucous membranes moist. Neck: Trachea midline, no thyromegaly or masses palpated, and no cervical lymphadenopathy. Supple, full range of motion without nuchal rigidity, or vertebral point tenderness. No Meningismus. Chest/axilla: Normal chest wall appearance and motion. Nontender with no deformity. No lesions are appreciated. Cardiovascular: Regular rate and rhythm with a normal S1 and S2. No gallops, murmurs, or rubs. Normal PMI, no JVD. No pulse deficits. Respiratory: Lungs have equal breath sounds bilaterally, clear to auscultation and percussion. No rales, rhonchi or wheezes noted. No increased work of breathing, no retractions or nasal flaring. Abdomen/GI: Soft, non-tender, with normal bowel sounds. No distension or tympany. No guarding or rebound. No evidence of tenderness throughout. Back: No spinal tenderness. No costovertebral tenderness. Full range of motion. Neuro: Awake and alert, GCS 15, oriented to person, place, time, and situation. Cranial nerves II-XII grossly intact. Motor strength 5/5 in all extremities. Sensory grossly intact. Cerebellar exam normal. Normal gait. Psych: Awake, alert, with orientation to person, place and time. Behavior, mood, and affect are within normal limits. 17:32 Musculoskeletal/extremity: Extremities: grossly normal except: noted in the dorsal aspect of left forearm: ecchymosis, ROM: no acute changes, Circulation is intact in all extremities. Sensation intact. Vital Signs: 15:36 BP 139 / 68; Pulse 77; Resp 16; Temp 97.4; Pulse Ox 95% on R/A; Weight 74.39 kg; Height la1 5 ft. 5 in. (165.10 cm); 16:39 BP 157 / 96; Pulse 84; Resp 17; Temp 99.0(TE); Pulse Ox 100% on R/A; mh5 17:44 BP 153 / 90; Pulse 86; Resp 18; Pulse Ox 99% on R/A; em 15:36 Body Mass Index 27.29 (74.39 kg, 165.10 cm) la1 MDM: 15:47 Patient medically screened. snw 17:20 Data reviewed: vital signs, nurses notes. Data interpreted: Pulse oximetry: on room air snw is 100 %. Interpretation: normal. Counseling: I had a detailed discussion with the patient and/or guardian regarding: the historical points, exam findings, and any diagnostic results supporting the discharge/admit diagnosis, the presence of at least one elevated blood pressure reading (>120/80) during this emergency department visit, radiology results, the need for outpatient follow up, to return to the emergency department if symptoms worsen or persist or if there are any questions or concerns that arise at home. Special discussion: I have referred the patient to see his PCP for further evaluation of high blood pressure. Based on the history and exam findings, there is no indication for further emergent testing or inpatient evaluation. I discussed with the patient/guardian the need to see the orthopedic surgeon for further evaluation of the symptoms. I discussed with the patient/guardian the need to see the primary care provider for further evaluation of the symptoms. 12/23 15:46 Order name: CT Traumagram (Head C Spine CAP wo con); Complete Time: 16:40 snw 12/23 15:46 Order name: FSBS; Complete Time: 16:20 snw 12/23 17:17 Order name: Sugar Tong Forearm Splint; Complete Time: 17:25 snw 12/23 17:25 Order name: Sling; Complete Time: 17:26 mh5 Administered Medications: 16:49 Drug: [place] 5 mg-325 mg 1 tabs Route: PO; em 17:26 Follow up: Response: No adverse reaction em Point of Care Testing: Blood Glucose: 15:38 Blood Glucose: 242 mg/dL; la1 16:20 Blood Glucose: 251 mg/dL; em Ranges: Critical Glucose Levels:Adult <50 mg/dl or >400 mg/dl <40 mg/dl or >180 mg/dl Disposition: 12/24 12:51 Co-signature as Attending Physician, Estrada Hobbs MD. Disposition: 12/23/18 17:19 Discharged to Home. Impression: Fall on same level, unspecified, Hypoglycemia, unspecified, Contusion of thorax, unspecified, Distal Radius Fracture. - Condition is Stable. - Discharge Instructions: Cast or Splint Care, Adult, Forearm Fracture, Fall Prevention in the Home, Hypoglycemia, Blood Glucose Monitoring, Adult, How to Use a Sling. - Prescriptions for Ultram 50 mg Oral Tablet - take 1 tablet by ORAL route every 6 hours As needed; 6 tablet. - Medication Reconciliation Form, Thank You Letter, Antibiotic Education, Prescription Opioid Use form. - Follow up: Private Physician; When: 1 - 2 days; Reason: Recheck today's complaints, Continuance of care, Re-evaluation by your physician. Follow up: Emergency Department; When: As needed; Reason: Worsening of condition. - Notes: Please keep log of diet and fingerstick glucose levels for PCP. I recommend not giving PM sliding scale dose until follow up with PCP Signatures: Dispatcher [employer] EDMariela Hopson, JULIANA-C ATHLETIC EQUIPMENT MANAGER-Csnw Saul Villa, FOLDER INSPECTOR FOLDER INSPECTOR Ruben Escalante RN RN la1 Martinez, Maria [facility] Estrada Hobsb MD MD Corrections: (The following items were deleted from the chart) 12/23 18:13 17:19 12/23/2018 17:19 Discharged to Home. Impression: Fall on same level, unspecified; em Hypoglycemia, unspecified; Contusion of thorax, unspecified; Distal Radius Fracture. Condition is Stable. Forms are Medication Reconciliation Form, Thank You Letter, Antibiotic Education, Prescription Opioid Use. Follow up: Private Physician; When: 1 - 2 days; Reason: Recheck today's complaints, Continuance of care, Re-evaluation by your physician. Follow up: Emergency Department; When: As needed; Reason: Worsening of condition. snw
--- NOTE | 2018-12-23 17:19 | ER ---
Nurse's Notes [facility] Name: Shelli Caputo Age: 73 yrs Sex: Female : 1945 Arrival Date: 12/23/2018 Time: 15:21 Bed 18 Private MD: Unknown, Unknown Diagnosis: Fall on same level, unspecified;Hypoglycemia, unspecified;Contusion of thorax, unspecified;Distal Radius Fracture Presentation: 12/23 15:33 Presenting complaint: Patient states: Last night my sugar dropped and when I got up to la1 go the bathroom I slipped off the bed and hit my ribs, left, elbow, and it not my glasses off. Transition of care: patient was not received from another setting of care. Onset of symptoms was December 23, 2018. Risk Assessment: Do you want to hurt yourself or someone else? Patient reports no desire to harm self or others. Initial Sepsis Screen: Does the patient meet any 2 criteria? No. Patient's initial sepsis screen is negative. Does the patient have a suspected source of infection? No. Patient's initial sepsis screen is negative. Care prior to arrival: None. 15:33 Method Of Arrival: Ambulatory la1 15:33 Acuity: JESSICA 3 la1 Historical: - Allergies: 15:33 cefazolin sodium; la1 15:33 Duravent DM; la1 15:33 GUAIFENESIN; la1 15:33 NSAIDS; la1 15:33 phenylpropanolamine HCl; la1 - PMHx: 15:33 CHF; COPD; CVA; Diabetes- IDDM; la1 - Immunization history:: Adult Immunizations up to date. - Social history:: Smoking status: Patient/guardian denies using tobacco. - Ebola Screening: : No symptoms or risks identified at this time. Screenin:00 Abuse screen: Denies threats or abuse. Nutritional screening: No deficits noted. em Tuberculosis screening: No symptoms or risk factors identified. Fall Risk None identified. Assessment: 16:00 General: Appears in no apparent distress. comfortable, Behavior is calm, cooperative. em Pain: Complains of pain in dorsal aspect of left forearm and left side of chest. Neuro: Level of Consciousness is awake, alert, obeys commands, Oriented to person, place, time, situation. Cardiovascular: Capillary refill < 3 seconds Patient's skin is warm and dry. Respiratory: Airway is patent Respiratory effort is even, unlabored, Respiratory pattern is regular, symmetrical. Derm: Skin is intact, is healthy with good turgor, Skin is pink, warm \T\ dry. Bruising that is dark purple, on dorsal aspect of left forearm. Musculoskeletal: Capillary refill < 3 seconds, Range of motion: intact in all extremities. 17:06 Reassessment: Patient appears in no apparent distress at this time. Patient and/or em family updated on plan of care and expected duration. Pain level reassessed. Patient is alert, oriented x 3, equal unlabored respirations, skin warm/dry/pink. 17:32 Reassessment: ambulated to restroom with walker, tolerated well. em Vital Signs: 15:36 BP 139 / 68; Pulse 77; Resp 16; Temp 97.4; Pulse Ox 95% on R/A; Weight 74.39 kg; Height la1 5 ft. 5 in. (165.10 cm); 16:39 BP 157 / 96; Pulse 84; Resp 17; Temp 99.0(TE); Pulse Ox 100% on R/A; mh5 17:44 BP 153 / 90; Pulse 86; Resp 18; Pulse Ox 99% on R/A; em 15:36 Body Mass Index 27.29 (74.39 kg, 165.10 cm) la1 ED Course: 15:21 Patient arrived in ED. ag5 15:22 Unknown, Unknown is Private Physician. ag5 15:34 Triage completed. la1 15:34 Arm band placed on left wrist. la1 15:44 Mariela Monique FNP-C is [facility]. snw 15:44 Estrada Hobbs MD is Attending Physician. snw 15:47 Saul Villa LVN is Primary Nurse. em 16:00 Patient has correct armband on for positive identification. Placed in gown. Bed in low em position. Call light in reach. Adult w/ patient. Pulse ox on. NIBP on. 16:05 CT completed. Patient tolerated procedure well. Patient moved back from CT. mw3 16:19 CT Traumagram (Head C Spine CAP wo con) In Process Unspecified. EDMS 17:24 Orthoglass splint: Sugar tong splint applied on left arm. Sling applied to left arm. mh5 18:11 No provider procedures requiring assistance completed. Patient did not have IV access em during this emergency room visit. Administered Medications: 16:49 Drug: [place] 5 mg-325 mg 1 tabs Route: PO; em 17:26 Follow up: Response: No adverse reaction em Point of Care Testing: Blood Glucose: 15:38 Blood Glucose: 242 mg/dL; la1 16:20 Blood Glucose: 251 mg/dL; em Ranges: Outcome: 17:19 Discharge ordered by MD. peres 18:11 Discharged to home ambulatory, with family. em 18:11 Condition: good 18:11 Discharge instructions given to patient, family, Instructed on discharge instructions, follow up and referral plans. medication usage, Demonstrated understanding of instructions, follow-up care, medications, splint care, Prescriptions given X 1. 18:13 Patient left the ED. em Signatures: Dispatcher [employer] EDMS Mariela Monique, MARKETING REPRESENTATIVE-C MARKETING REPRESENTATIVE-Csnw Saul Villa, FREELANCE TRANSLATOR FREELANCE TRANSLATOR em Ruben Escalante RN RN Maggie Bui 5 Marilee Gonsales 3 Imelda Sandy [facility]
[2018-12-23 18:39] VITALS: TEMP 99
[2018-12-23 18:40] VITALS: BP 153/90; O2SAT 99
== END 2018-12-23 18:13 | disposition home or self-care (01) ==
LOC: ER 15:15
PROC: 2W3DX1Z Immobilization of Left Lower Arm using Splint (ICD-10-PCS; principal; 2018-12-23)
DX: S20.20XA Contusion of thorax, unspecified, initial encounter (principal); S52.502A Unspecified fracture of the lower end of left radius, initial encounter for closed fracture; W18.30XA Fall on same level, unspecified, initial encounter; E11.649 Type 2 diabetes mellitus with hypoglycemia without coma; I50.9 Heart failure, unspecified; J44.9 Chronic obstructive pulmonary disease, unspecified; Z86.73 Personal history of transient ischemic attack (TIA), and cerebral infarction without residual deficits; Z88.6 Allergy status to analgesic agent; Z88.1 Allergy status to other antibiotic agents; Z88.8 Allergy status to other drugs, medicaments and biological substances
CPT/HCPCS: 70450; 71250; 72125; 82962; 99284